=== PATIENT | male | born 1945 | race Caucasian/White ===

== ENCOUNTER 2018-07-20 11:29 | Inpatient (IN) ==
[2018-07-20] MEDS ORDERED: D50W SYRINGE IV PRN (12:45)
[2018-07-20] MEDS: SODIUM CHLORIDE 0.9% INJ SCH (12:53)
[2018-07-20] MEDS: PROTONIX IV SCH (12:53)
[2018-07-20] MEDS: LEVAQUIN 750 MG/D5W 750 MG/150 ML IVPB IV SCH (12:53)
[2018-07-20 14:31] LABS: BASO# 0.08 X1000 (0.0-0.2); BASO% 0.6 % (0.0-0.8); EOS# 0.07 X1000 (0.0-0.7); EOS% 0.6 % (0.0-10.0); HEMATOCRIT 36.8 % (42.0-52.0); IMM GRAN# 0.05 X1000 (0.0-0.04); IMM GRAN% 0.4 % (0.0-0.5); LYMPH% 15.4 % (20.5-51.1); MCH 29.4 PG (27-31); MCHC 32.6 g/dL (33-37); MCV 90.2 FL (81-99); MONO% 8.9 % (1.7-9.3); MPV 9.1 FL (7.4-10.4); NEUT# 9.17 X1000 (1.4-6.5); NEUT% 74.1 % (42.2-75.2); PLT 869 X1000 (130-400); RBC 4.08 XMIL (4.7-6.1); RDW 13.5 % (11.5-14.5); WBC 12.37 X1000 (4.8-10.8)
[2018-07-20] MEDS: POTASSIUM CHLORIDE 10 MEQ in 1/2 NS 1,000 ML IV SCH (14:48)
[2018-07-20] MEDS: MORPHINE IV PRN ×3 (14:48→23:30)
--- NOTE | 2018-07-20 14:49 | Diag Imaging Result Doc PS360 ---
EXAM: CHEST-2 VIEWS 07/20/2018 HISTORY: r/o pna aspiration TECHNIQUE: PA and lateral chest COMMENT: There is no evidence of acute cardiac or pulmonary disease. Compared to 07/20/2018 there has been no significant change in the appearance of the chest. IMPRESSION: No evidence of acute disease. Electronically signed by Geoff Godwin 07/20/2018 2:47 PM
--- NOTE | 2018-07-20 14:51 | EKG Report ---
Test Performed on : 07/20/2018 2:42:21 PM Test Reason : r/o pna aspiration Blood Pressure : / mmHG Vent. Rate : 102 BPM Atrial Rate : 102 BPM P-R Int : 140 ms QRS Dur : 076 ms QT Int : 364 ms P-R-T Axes : 040 038 050 degrees QTc Int : 474 ms Sinus tachycardia. Otherwise normal ECG When compared with ECG of 20-JUL-2018 14:41, (Unconfirmed) No significant change was found Confirmed by Zoya GAMING, Neil ([id number]) on 07/20/2018 5:31:30 PM
[2018-07-20 14:54] LABS: ALB/GLOB RATIO 0.9; ALBUMIN 3.8 g/dL (3.5-5.0); CALCIUM 9.7 mg/dL (8.8-10.2); CREATININE 1.5 mg/dL (0.7-1.2); POTASSIUM 3.8 mmol/L (3.5-5.1); TOTAL BILIRUBIN 0.26 mg/dL (0.20-1.00)
[2018-07-20 15:05] LABS: BANDS 5 % (0-1); LYMPHS 20 % (21-51); MONO 1 % (1-9); SEGS 74 % (42-75)
[2018-07-20 15:56] LABS: URINE SOURCE CLEAN CATCH
[2018-07-20 15:58] LABS: BILIRUBIN URINE NEGATIVE (NEGATIVE); BLOOD URINE NEGATIVE (NEGATIVE); COLOR STRAW; GLUCOSE URINE NEGATIVE (NEGATIVE); KETONE URINE NEGATIVE (NEGATIVE); LEUKOCYTES URINE SMALL (NEGATIVE); NITRITE URINE NEGATIVE (NEGATIVE); PROTEIN URINE NEGATIVE (NEGATIVE); TURBIDITY URINE CLEAR (CLEAR); UR EPITHELIAL CELLS <10 /HPF (<10); URINE BACTERIA 1+ /HPF; URINE RBC <10 /HPF (<10); URINE WBC <10 /HPF (<10); UROBILINOGEN URINE NORMAL (NORMAL)
[2018-07-20] MEDS: HUMALOG SUBQ SCH ×2 (16:37→23:45)
[2018-07-20] MEDS ORDERED: TYLENOL PO PRN (17:44)
[2018-07-20] MEDS: GLUCOPHAGE XR PO SCH (18:54)
[2018-07-20] MEDS: GLUCOTROL PO SCH (18:55)
--- NOTE | 2018-07-20 19:00 | CONSULTATION ---
DATE OF CONSULTATION: 07/20/2018 HISTORY OF PRESENT ILLNESS: This 73-year-old male was admitted with abdominal pain, nausea, vomiting, and scrotal swelling. 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 He states it steadily became worse. He then developed some nausea, abdominal pain and very loose bowels. He states he has been on amoxicillin for a possible urinary tract infection. It started several weeks ago. He states he normally voids without difficulty. He has had no previous surgery on his bladder or prostate. He has no history of kidney stones or hematuria. He states he had a right hydrocele removed in the early . He states that that occurred slowly and eventually got large enough that he wanted it removed. He states the swelling on the left side appeared over several days and is painful. PAST MEDICAL HISTORY: 1. Coronary artery disease. 2. Hypertension. 3. History of congestive heart failure. 4. Elevated cholesterol. 5. Diabetes. 6. Peripheral neuropathy. CURRENT MEDICATIONS: Documented on the chart and include IV Levaquin. PAST SURGICAL HISTORY: 1. Cataract surgery. 2. Right hydrocelectomy. 3. Left foot trauma surgery. SOCIAL HISTORY: Cigarettes over a pack a day for 18 years. Quit in 1989. ETOH use negative. ALLERGIES: He is allergic to penicillin. REVIEW OF SYSTEMS: He states he is usually in good health. He denies any recent chest pains or pulmonary problems. He states he does have some arthritis. PHYSICAL EXAMINATION: General: A normally developed, well-nourished, age apparent, white male, oriented in all ways and cooperative. HEENT: Normal for age. He is essentially edentulous. Neck: Supple. Cardiovascular: Regular rate and rhythm. Lungs: Clear. Abdomen: Protuberant. Diffuse tenderness throughout without guarding or rebound. Genitourinary: Normal uncircumcised male. Foreskin retracts. Meatus is normal. The right scrotum has a scar consistent with his previous surgery. Testis is palpably normal. The left side has increased erythema and the scrotal skin is fixed, and the scrotum is firm and somewhat tender. Rectal: Normal sphincter tone. Prostate around 40 g smooth and symmetric. Nontender to palpation. Extremities: No clubbing, cyanosis, or edema. Neurologic: No focal deficits. LABORATORY EVALUATION: He has a white count of 12.37, hemoglobin 12, hematocrit 36.8, platelets are 169,000. Serum electrolytes have a sodium of 132, potassium 3.8, chloride 99, bicarb 19, BUN 25, creatinine 1.5. Urinalysis had small leukocytes on the dipstick, otherwise normal. There was + 1 bacteria noted. IMPRESSION: 1. Probable left epididymo-orchitis. 2. Enlarging prostate with some obstructive voiding. RECOMMENDATIONS: 1. As has been done. Urine for culture and sensitivities. 2. Start Flomax 0.4 mg a day. 3. Continue Levaquin. 4. Scrotal ultrasound. Thank you for this consultation. cc: MD Neil Rangel MD
--- NOTE | 2018-07-20 19:01 | Diag Imaging Result Doc PS360 ---
EXAM: US SCROTUM 07/20/2018 HISTORY: left scrotal swelling pain. TECHNIQUE: Scrotal ultrasound COMMENT: The left testicle is enlarged, inhomogeneous and hypoechoic without internal color Doppler flow. There is hyperemic flow around the testicle. The left epididymis is swollen and also decreased in vascular flow. There are no masses. There is color Doppler flow in the right testicle. IMPRESSION: Apparent left testicular torsion. The findings were discussed with Manan Epps MD at 07/20/2018 6:58 PM. Electronically signed by Geoff Godwin 07/20/2018 6:58 PM
--- NOTE | 2018-07-20 19:51 | HISTORY AND PHYSICAL ---
HISTORY OF PRESENT ILLNESS: Mr. Ibanez is a 73-year-old white gentleman, known case of diabetes mellitus, GERD syndrome, restless leg syndrome and hyperlipidemia. He comes to the office with persistent vomiting and diarrhea. This is going on for about 7 days. He has lost some weight. He was dehydrated more over the last week. While he was working on his riding mower, he found out that he had pain in the scrotum, and the scrotum got swollen and inflamed. He was worried about hydrocele. He came to the office. He was found to have possibly epididymoorchitis and so we decided to put him in the hospital. PAST MEDICAL ILLNESSES: Other than what has been mentioned, he did not have any significant medical illness except 4 years ago he was found to have diabetes. He also had a left leg injury that was about 45-50 years ago. 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 SOCIAL HISTORY: He is a nonsmoker, does not drink. ALLERGIES: He is allergic to penicillins. REVIEW OF SYSTEMS: Other than what has been mentioned is negative for any rectal bleeding or complaining of having any hematuria or burning in the urination. He has some intermittent abdominal pain. PHYSICAL EXAMINATION: VITAL SIGNS: Reveal temperature normal, pulse 95 per minute, respiratory rate 18 per minute, blood pressure 145/87. HEAD: Normocephalic. EYES: Pupils PERRLA. Fundus examination not done. NECK: Supple. JVP normal. ENT EXAMINATION: Unremarkable. NECK: There is no evidence of lymphadenopathy, thyroid enlargement. EXTREMITIES: No pedal edema, calf tenderness, anemia, cyanosis or clubbing. Pedal pulses well felt. BREAST EXAM: Normal. CHEST: Normal inspection. LUNGS: Clear on auscultation. PMI is in the normal position. HEART: Sounds normal. No murmur, gallop or rub noted. ABDOMEN: Nondistended. Hernial orifices normal. No guarding, rigidity, free fluid, masses, or organomegaly. Bowel sounds normal. RECTAL: Deferred. GENITAL EXAMINATION: Reveals the penis appears normal. There is no local adenopathy; however, there is large scrotal swelling. The scrotum is diffusely distended, and there is inflammation in the skin. There is tenderness over the testicles, more on the left side. CENTRAL NERVOUS SYSTEM: Higher functions normal. Cranial nerves normal. Motor and sensory system examination unremarkable. Deep tendon reflexes normal. Plantars downgoing. Skull and spine examination normal for age. No cerebellar signs or signs of meningeal irritation. LOCOMOTOR EXAMINATION: Unremarkable. SKIN: Unremarkable except for presence of dehydration. CLINICAL IMPRESSION: 1. Dehydration. 2. Gastroenteritis. 3. Epididymoorchitis. 4. The patient has a history of diabetes and hyperlipidemia. PLAN: To restart the IV fluids and get the urine culture. We will also try to get the blood cultures and then start Levaquin. We will get a urology consult with Dr. Epps. cc: Neil Kenny MD
[2018-07-20] MEDS: REQUIP PO SCH ×2 (23:26→23:45)
[2018-07-20] MEDS: FLOMAX PO SCH (23:27)
[2018-07-20] MEDS: PRAVACHOL PO SCH (23:27)
[2018-07-20] MEDS: LOPID PO SCH (23:28)
[2018-07-21] MEDS: POTASSIUM CHLORIDE 10 MEQ in 1/2 NS 1,000 ML IV SCH ×2 (04:14→20:52)
[2018-07-21] MEDS: HUMALOG SUBQ SCH ×4 (06:31→21:05)
--- NOTE | 2018-07-21 08:42 | PROGRESS NOTE ---
DATE: 07/21/2018 SUBJECTIVE: Mr. Ibanez is feeling slightly better. His dehydration is improving. The ultrasound of the scrotum revealed a torsion of the testicle on the left side. He was seen by Dr. Villagran. He also thinks that the left testicle is severely ischemic and he wants to do orchiectomy. The patient is agreeable to that. cc: Neil Kenny MD
[2018-07-21] MEDS ORDERED: NORVASC PO SCH (09:00)
[2018-07-21] MEDS ORDERED: FENTANYL ONE (11:31)
[2018-07-21] MEDS ORDERED: DIPRIVAN 1% ONE (11:31)
[2018-07-21] MEDS ORDERED: BACITRACIN OINTMENT ONE (11:51)
[2018-07-21] MEDS ORDERED: MARCAINE 0.5% ONE (11:51)
[2018-07-21] MEDS: LEVAQUIN 750 MG/D5W 750 MG/150 ML IVPB IV SCH (12:48)
[2018-07-21] MEDS ORDERED: XYLOCAINE-MPF 2% ONE (12:54)
[2018-07-21] MEDS ORDERED: EPHEDRINE ONE (12:54)
[2018-07-21] MEDS: ASPIRIN EC PO SCH (13:02)
[2018-07-21] MEDS: GLUCOPHAGE XR PO SCH ×2 (13:02→17:17)
[2018-07-21] MEDS: GLUCOTROL PO SCH ×2 (13:02→17:17)
[2018-07-21] MEDS: SODIUM CHLORIDE 0.9% INJ SCH (13:03)
[2018-07-21] MEDS: PROTONIX IV SCH (13:03)
[2018-07-21] MEDS: NORVASC PO SCH (13:03)
[2018-07-21] MEDS: LOPID PO SCH ×2 (13:03→20:56)
[2018-07-21] MEDS ORDERED: XYLOCAINE 2% JELLY ONE (13:32)
[2018-07-21] MEDS: DILAUDID ONE ×2 (13:52→13:57)
[2018-07-21] MEDS: MORPHINE IV PRN ×2 (17:24→20:48)
--- NOTE | 2018-07-21 19:12 | OPERATIVE NOTE ---
PROCEDURE DATE: 07/21/2018 SURGEON: Manna Epps MD. PREOPERATIVE DIAGNOSIS: Infarcted left testis. POSTOPERATIVE DIAGNOSIS: Infarcted left testis. PROCEDURE PERFORMED: 1. Left scrotal orchiectomy. 2. Right orchidopexy. ANESTHESIA: General via laryngeal mask. FINDINGS: A very necrotic left testis that was affixed to the anterior scrotal wall and had to be sharply dissected free of the wall. The right testis was somewhat fixed to the right scrotal wall secondary to his previous hydrocelectomy. INDICATION FOR PROCEDURE: This 73-year-old male has a several-week history of pain in the left scrotum. He states that several weeks ago the scrotum had what felt like fluid, and that got better but he developed severe pain. A scrotal ultrasound revealed no blood flow to the left testis and apparent necrotic changes. DESCRIPTION OF PROCEDURE: After informed consent was obtained from the patient and him receiving his routine IV antibiotics, he was taken to the main OR and placed in the supine position. General anesthesia via laryngeal mask was achieved. He was then prepped and draped in the usual sterile fashion for lower abdominal, penile, and scrotal surgery. A longitudinal skin incision was made over the scrotal raphe, coming down on the very swollen left testis. The scrotal skin had to be sharply dissected away from the testis. The right side of the testis dissected away much easier than the anterior and left side of the testis. After the testis was completely freed, it was able to be dissected back to the cord. The cord was into 3 parts, and a EDER stapler with a vascular load was used to staple across the cord. The testis was then passed off the field to be sent to Pathology. The right testis was pexed to the right scrotal wall using a single suture of 4- 0 Prolene. The wound was irrigated. A 1/4-inch Eugenia drain was placed through a separate stab incision into the left scrotal area. The dartos tunica was reapproximated with a running locking suture of 3-0 chromic. The skin was reapproximated with a running simple suture of 3-0 chromic. The Eugenia drain was sutured to the skin with 3-0 chromic. The wound was dressed with bacitracin ointment. A scrotal turban dressing was placed. This was reinforced with fluff gauze, and a scrotal support was placed. He tolerated the procedure well. Estimated blood loss was 30 mL. He was taken to the recovery room in good condition. cc: MD Neil Rangel MD MTDD
[2018-07-21] MEDS: FLOMAX PO SCH (20:56)
[2018-07-21] MEDS: PRAVACHOL PO SCH (20:56)
[2018-07-21] MEDS: REQUIP PO SCH ×2 (20:56→20:57)
[2018-07-22] MEDS: MORPHINE IV PRN ×3 (03:18→22:37)
[2018-07-22] MEDS: HUMALOG SUBQ SCH ×4 (06:05→23:17)
[2018-07-22 07:18] LABS: BASO# 0.02 X1000 (0.0-0.2); BASO% 0.3 % (0.0-0.8); EOS# 0.05 X1000 (0.0-0.7); EOS% 0.7 % (0.0-10.0); HEMATOCRIT 32.2 % (42.0-52.0); HEMOGLOBIN 10.6 g/dL (14.0-18.0); IMM GRAN# 0.02 X1000 (0.0-0.04); IMM GRAN% 0.3 % (0.0-0.5); LYMPH# 1.33 X1000 (1.2-3.4); LYMPH% 19.2 % (20.5-51.1); MCHC 32.9 g/dL (33-37); MCV 91.2 FL (81-99); MONO# 0.82 X1000 (0.11-0.59); MONO% 11.8 % (1.7-9.3); MPV 8.9 FL (7.4-10.4); NEUT# 4.68 X1000 (1.4-6.5); NEUT% 67.7 % (42.2-75.2); PLT 721 X1000 (130-400); RBC 3.53 XMIL (4.7-6.1); RDW 13.7 % (11.5-14.5); WBC 6.92 X1000 (4.8-10.8)
[2018-07-22 07:35] LABS: AGAP 9; BUN 10 mg/dL (8-22); CALCIUM 8.9 mg/dL (8.8-10.2); CHLORIDE 107 mmol/L (98-107); COSMO 272; ESTIMATED GFR > 60; GLUCOSE 109 mg/dL (70-104); POTASSIUM 4.4 mmol/L (3.5-5.1); SODIUM 136 mmol/L (136-145); TCO2 20 mmol/L (25-35)
--- NOTE | 2018-07-22 09:05 | PROGRESS NOTE ---
DATE: 07/22/2018 Mr. Ibanez is doing better. He had left-sided orchiectomy yesterday through the scrotum. The wound looks quite well. He is still in a lot of pain but he is feeling better. There is some drainage. CBC almost is normal. Hemoglobin came down from 12 to 10.6 with hydration. His BUN and creatinine also have come down with significant hydration. Urinalysis and urine culture are negative. We are going to continue with the current management. Cut down on his fluid to KVO. cc: Neil Kenny MD
[2018-07-22] MEDS: ASPIRIN EC PO SCH (10:10)
[2018-07-22] MEDS: LOPID PO SCH ×2 (10:11→22:38)
[2018-07-22] MEDS: GLUCOTROL PO SCH ×2 (10:11→16:29)
[2018-07-22] MEDS: NORVASC PO SCH (10:11)
[2018-07-22] MEDS: GLUCOPHAGE XR PO SCH ×2 (10:11→16:30)
[2018-07-22] MEDS: POTASSIUM CHLORIDE 10 MEQ in 1/2 NS 1,000 ML IV SCH (10:11)
[2018-07-22] MEDS: PROTONIX IV SCH (12:23)
[2018-07-22] MEDS: LEVAQUIN 750 MG/D5W 750 MG/150 ML IVPB IV SCH (13:23)
[2018-07-22] MEDS: ZOFRAN IV PRN (14:09)
[2018-07-22] MEDS: SODIUM CHLORIDE 0.9% INJ SCH (16:23)
[2018-07-22] MEDS: PRAVACHOL PO SCH (22:38)
[2018-07-22] MEDS: REQUIP PO SCH (22:38)
[2018-07-22] MEDS: FLOMAX PO SCH (22:38)
[2018-07-23] MEDS: HUMALOG SUBQ SCH ×4 (06:46→20:28)
--- NOTE | 2018-07-23 09:07 | PROGRESS NOTE ---
DATE: 07/23/2018 Mr. Ibanez is in about the same general condition. His blood culture and urine culture is negative. His blood sugar went down to 55 last night. It has gone up now. It is better. We are continuing the current management on him. We will put him on pain medication by mouth if he can. He has been getting IV morphine which we will try to hold. cc: Neil Kenny MD
[2018-07-23] MEDS: POTASSIUM CHLORIDE 10 MEQ in 1/2 NS 1,000 ML IV SCH (10:14)
[2018-07-23] MEDS: LOPID PO SCH ×2 (10:14→20:52)
[2018-07-23] MEDS: GLUCOTROL PO SCH ×2 (10:15→17:56)
[2018-07-23] MEDS: GLUCOPHAGE XR PO SCH ×2 (10:15→17:56)
[2018-07-23] MEDS: ASPIRIN EC PO SCH (10:15)
[2018-07-23] MEDS: NORVASC PO SCH (10:15)
[2018-07-23] MEDS: NORCO-10 PO PRN ×2 (10:18→20:52)
[2018-07-23] MEDS: PROTONIX IV SCH (12:01)
[2018-07-23] MEDS: SODIUM CHLORIDE 0.9% INJ SCH (12:01)
[2018-07-23] MEDS: LEVAQUIN 750 MG/D5W 750 MG/150 ML IVPB IV SCH (13:36)
[2018-07-23] MEDS: REQUIP PO SCH (20:51)
[2018-07-23] MEDS: PRAVACHOL PO SCH (20:52)
[2018-07-23] MEDS: FLOMAX PO SCH (20:52)
[2018-07-24] MEDS: HUMALOG SUBQ SCH ×2 (05:59→11:37)
[2018-07-24] MEDS: GLUCOPHAGE XR PO SCH (08:30)
[2018-07-24] MEDS: GLUCOTROL PO SCH (08:31)
[2018-07-24] MEDS: ASPIRIN EC PO SCH (08:32)
[2018-07-24] MEDS: LOPID PO SCH (08:33)
[2018-07-24] MEDS: ZOFRAN IV PRN (08:34)
[2018-07-24] MEDS: NORVASC PO SCH (08:34)
[2018-07-24] MEDS: POTASSIUM CHLORIDE 10 MEQ in 1/2 NS 1,000 ML IV SCH (10:35)
[2018-07-24 11:37] VITALS: BP 113/51
--- NOTE | 2018-07-24 12:03 | PROGRESS NOTE ---
DATE: 07/24/2018 The patient is doing better. His vital signs are stable. Blood sugars are stable. The cultures did not grow any growth. We will discharge him today since it was approved by DR. Epps yesterday. I gave him a prescription of [place] 5 t.i.d. p.r.n., 30 tablets and Levaquin for about 4 more days. -9 cc: Neil Kenny MD
--- NOTE | 2018-07-24 12:13 | DISCHARGE SUMMARY ---
ADMISSION DATE: 07/20/2018 DISCHARGE DATE: 07/24/2018 HISTORY: Ms. Ibanez was hospitalized on 07/20/2018. He was hospitalized for possible epididymo- orchitis. IV Levaquin was started. A urology consult was made. Tamsulosin was started. Ultrasound was ordered which revealed presence of torsion of the testicle on the left side. Dr. Epps thought it was possibly vascular necrosis of the testicle. He decided to do the orchiectomy, which was done on the next day. He tolerated the procedure very well, except for one episode of hypoglycemia. He is feeling better. I am going to discharge him today with a prescription of Levaquin 750 mg daily for about 4 days, and [employer] 5 t.i.d. p.r.n. 30 tablets. FINAL DIAGNOSIS: Torsion of the left testicle status post orchiectomy, and possibleepididymo- orchitis. He also had some gastroenteritis. There was some dehydration also at the time of admission, which made the BUN and creatinine go up, and came down significantly to normal levels. cc: Neil Kenny MD MTDD
[2018-07-24] MEDS: PROTONIX IV SCH (14:00)
[2018-07-24] MEDS: LEVAQUIN 750 MG/D5W 750 MG/150 ML IVPB IV SCH (14:01)
[2018-07-24] MEDS: SODIUM CHLORIDE 0.9% INJ SCH (14:01)
== END 2018-07-24 15:06 | disposition home or self-care (01) | DRG 711 ==
LOC: DIRADM 11:29 → 3N 12:08
PROVIDERS: ADMIT Internal Medicine; ATTEND Internal Medicine
CPT/HCPCS: 71020; 71046; 76870; 80048; 80053; 81001; 82948; 85025; 87040; 87088; 88304; 93005; 93010; A9270; C9113; J1170; J1815; J1956; J2270; J2405; J3010; J3480; S0020; S0164; XXXXX

== ENCOUNTER 2018-08-09 20:44 | Inpatient (IN) ==
[2018-08-09] MEDS ORDERED: ATIVAN IM ONE (20:52)
--- NOTE | 2018-08-09 21:15 | Diag Imaging Result Doc PS360 ---
EXAM: CT HEAD W/O CONTRAST HISTORY: seizure TECHNIQUE: CT head without contrast COMPARISON: None. FINDINGS: No parenchymal hemorrhage. No epidural or subdural hematoma. No subarachnoid hemorrhage. Mild atrophy. No mass identified on this noncontrasted exam. No hydrocephalus. Small air-fluid level in the right maxillary sinus. IMPRESSION: 1.No hemorrhage 2.Mild atrophy This exam was performed using automated exposure control, adjustment of mA or kV according to patient size, and/or use of iterative reconstruction technique. Electronically signed by Kan Apodaca 08/09/2018 9:12 PM
--- NOTE | 2018-08-09 21:16 | Diag Imaging Result Doc PS360 ---
EXAM: CHEST-PORTABLE HISTORY: ams TECHNIQUE: Portable chest single view COMPARISON: 07/20/2018 FINDINGS: The lungs are well expanded. The heart is not enlarged. The vessels are not distended. There are no infiltrates. No effusion identified. IMPRESSION: Negative exam. Electronically signed by Kan Apodaca 08/09/2018 9:14 PM
[2018-08-09] MEDS ORDERED: NS 1,000 ML IV ONE (21:21)
[2018-08-09 21:43] LABS: BASO# 0.03 X1000 (0.0-0.2); BASO% 0.2 % (0.0-0.8); EOS# 0.08 X1000 (0.0-0.7); EOS% 0.6 % (0.0-10.0); HEMATOCRIT 36.3 % (42.0-52.0); HEMOGLOBIN 12.1 g/dL (14.0-18.0); IMM GRAN# 0.06 X1000 (0.0-0.04); IMM GRAN% 0.5 % (0.0-0.5); LYMPH# 1.93 X1000 (1.2-3.4); LYMPH% 14.7 % (20.5-51.1); MCH 29.7 PG (27-31); MCHC 33.3 g/dL (33-37); MCV 89.2 FL (81-99); MONO# 0.97 X1000 (0.11-0.59); MONO% 7.4 % (1.7-9.3); MPV 9.2 FL (7.4-10.4); NEUT# 10.02 X1000 (1.4-6.5); NEUT% 76.6 % (42.2-75.2); PLT 742 X1000 (130-400); RBC 4.07 XMIL (4.7-6.1); RDW 14.7 % (11.5-14.5); WBC 13.09 X1000 (4.8-10.8)
[2018-08-09 21:51] LABS: INR 0.95; PROTIME 13.5 Seconds (11.0-16.0)
[2018-08-09 21:52] LABS: PTT 29.6 Seconds (22.3-41.8)
[2018-08-09 22:11] LABS: URINE SOURCE CATH
[2018-08-09 22:49] LABS: AGAP 25; ALB/GLOB RATIO 1.4; ALBUMIN 4.2 g/dL (3.5-5.0); ALKALINE PHOSPHATASE 103 U/L (32-122); BUN 22 mg/dL (8-22); CALCIUM 9.6 mg/dL (8.8-10.2); CHLORIDE 96 mmol/L (98-107); CK PROFILE 181 U/L (24-204); COSMO 283; CREATININE 1.1 mg/dL (0.7-1.2); ESTIMATED GFR > 60; GLUCOSE 169 mg/dL (70-104); GOT 16 U/L (10-34); GPT 13 U/L (10-44); POTASSIUM 4.6 mmol/L (3.5-5.1); SODIUM 138 mmol/L (136-145); TCO2 17 mmol/L (25-35); TOTAL BILIRUBIN 0.18 mg/dL (0.20-1.00); TOTAL PROTEIN 7.3 g/dL (6.3-8.3)
[2018-08-09 22:58] LABS: BILIRUBIN URINE NEGATIVE (NEGATIVE); BLOOD URINE SMALL (NEGATIVE); COLOR YELLOW; GLUCOSE URINE 100 mg/dL (NEGATIVE); KETONE URINE TRACE mg/dL (NEGATIVE); LEUKOCYTES URINE NEGATIVE (NEGATIVE); NITRITE URINE NEGATIVE (NEGATIVE); PROTEIN URINE 70 mg/dL (NEGATIVE); SP GRAVITY URINE 1.014; TURBIDITY URINE CLEAR (CLEAR); UR EPITHELIAL CELLS <10 /HPF (<10); URINE BACTERIA NEGATIVE /HPF; URINE RBC <10 /HPF (<10); URINE WBC <10 /HPF (<10); UROBILINOGEN URINE NORMAL (NORMAL)
[2018-08-09] MEDS ORDERED: CEREBYX IV ONE (22:59)
[2018-08-09] MEDS ORDERED: CEREBYX 1,000 MG in NS 50 ML IV ONE (23:12)
[2018-08-09 23:13] LABS: ALLEN TEST YES; BE -2.9 mmoll (-3.0-3.0); BLOOD TYPE ARTERIAL; HCO3-(ACT) 22.7 mmoll (20.0-26.0); METHB 0.2 % (0.0-1.5); O2(CT) 13.1 mL/dL (15.0-23.0); PCO2(98.6) 42 mmHg (35-45); PO2(98.6) 151 mmHg (60-100); SAMPLE BLOOD; SAO2 98.8 % (95.0-100.0); THB 9.4 g/dL (11.5-17.4); pH(98.6) 7.34 (7.35-7.45)
[2018-08-09 23:14] LABS: MODALITY CANNULA
--- NOTE | 2018-08-09 23:40 | PROVIDER DOCUMENTATION ---
This chart was entered by Esther Ferguson Scribe, acting as scribe for Michaelle Campos MD. HPI-Neurological Disorder - General Chief Complaint: Altered Mental Status Stated Complaint: AMS Time Seen by Provider: 08/09/18 20:58 Source: family, EMS Allergies/Adverse Reactions: Patient Allergies Allergy/AdvReac Type Severity Reaction Status Date / Time Penicillins Allergy Mild RASH Verified 07/20/18 12:21 Home Medications: Home Medication List Medication Instructions Recorded Confirmed Last Taken Type Amlodipine Besylate 5 mg PO DAILY 07/20/18 07/20/18 07/20/18 09:00 History Gemfibrozil [Lopid] 600 mg PO BID 07/20/18 07/20/18 07/20/18 09:00 History Glipizide 5 mg PO BID 07/20/18 07/20/18 07/20/18 09:00 History Metformin HCl [Metformin HCl ER] 1,000 mg PO BID 07/20/18 07/20/18 07/20/18 09:00 History Omeprazole 20 mg PO DAILY 07/20/18 07/20/18 07/20/18 09:00 History Pravastatin Sodium 40 mg PO HS 07/20/18 07/20/18 07/19/18 21:00 History Ropinirole HCl 2 mg PO HS 07/20/18 07/20/18 07/19/18 21:00 History Aspirin EC 81 mg PO DAILY tab 07/24/18 Unknown Rx Hydrocodone/Acetaminophen [[place] 1 ea PO TID PRN PRN #30 tab 07/24/18 Unknown Rx 5-325 Tablet] Levofloxacin [Levaquin] 500 mg PO DAILY #4 tab 07/24/18 Unknown Rx Tamsulosin [Flomax] 0.4 mg PO QHS cap 07/24/18 Unknown Rx - History of Present Illness-Neuro Nature of Presenting Problem: Pt is 73/M presenting to ED via EMS. Family reports that he has had AMS for the last week and fell today, was at kitchen table and drooped over and fell into floor. Non witnessed. Family called EMS. Pt is non verbal at time of arrival. Will now answer w/ yes and no. Can not give name. hx of HTN and DM Onset/Duration: reports: just prior to arrival Timing: reports: still present Context: reports: other (found drooped down and nonverbal by family) Character of Altered Mental Status: reports: decreased responsiveness Any recent trauma/injury?: reports: none Character of Deficits: reports: impaired speech Cognitive Baseline: alert but disoriented Associated Symptoms: reports: seizures Similar Symptoms Previously?: No Recently seen or treated by another doctor?: No Review of Systems - Adult - REVIEW OF SYSTEMS - ADULT ROS:: limited per condition Constitutional: denies: chills, fever Eyes: reports: no symptoms reported Ears, Nose, Mouth & Throat: reports: no symptoms reported Cardiovascular: reports: no symptoms reported Respiratory: denies: cough, shortness of breath Gastrointestinal: denies: diarrhea, vomiting Genitourinary: reports: no symptoms reported Musculoskeletal: reports: no symptoms reported Integumentary: reports: no symptoms reported Neurological: reports: other (non verbal) Psychiatric: reports: no symptoms reported Endocrine: reports: no symptoms reported Hematologic/Lymphatic: reports: no symptoms reported Allergic/Immunologic: reports: no symptoms reported All Other Systems: Reviewed and Negative Past History - Adult - PAST MEDICAL HISTORY-ADULT Review of Records: reports: Old Records Reviewed, Nursing Assessment Review, Medications Reviewed Cardiovascular: reports: HTN Respiratory: reports: denies history Gastrointestinal: reports: denies history Obstetrical/Gynecological: reports: denies history Genitourinary: reports: denies history Musculoskeletal: reports: denies history Neurological: reports: denies history Psychiatric: reports: denies history Endocrine/Immune: reports: denies history Other Conditions: reports: denies history - PRIOR SURGERIES/PROCEDURES Surgical/Procedure History: reports: none - SOCIAL HISTORY Smoking: quit greater than 1 year Substance Use: none/never Living Situation: family Physical Exam- Neurological - Physical Exam-Neuro Initial Vital Signs Reviewed: Yes General Appearance: appears well, alert, no apparent distress Eye Exam: bilateral eye: normal inspection, PERRL HENMT: normocephalic/atraumatic, moist mucous membranes, normal ENT inspection, TMs normal, pharynx normal Head Injury: no evidence of injury Neck: non-tender, full range of motion, supple, normal inspection Respiratory: chest non-tender, lungs clear, normal breath sounds Cardiovascular: regular rate, rhythm, no edema Abdominal Exam: normal bowel sounds, non tender, soft Extremity: normal range of motion, non-tender, 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, 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: other (pt non verbal, only answering yes or no at this point) Integumentary: normal color, warm/dry - [place] Coma Scale Best Eye Response: (4) open spontaneously Best Verbal Response: (1) no verbal response Progress - PLAN OF CARE/RESULTS Progress/Plan/Lab Results: Vital Signs - 8 hr 08/09/18 21:26 Temperature 97.7 F Pulse Rate 121 H Respiratory Rate 22 Blood Pressure 190/94 O2 Sat by Pulse Oximetry 99 Laboratory Results - last 24 hr 08/09/18 08/09/18 08/09/18 21:20 21:20 21:20 WBC 13.09 H RBC 4.07 L Hgb 12.1 L Hct 36.3 L MCV 89.2 MCH 29.7 MCHC 33.3 RDW Std Deviation 14.7 H Plt Count 742 H MPV 9.2 Immature Gran % (Auto) 0.5 Neut % (Auto) 76.6 H Lymph % (Auto) 14.7 L [place] % (Auto) 7.4 Eos % (Auto) 0.6 Baso % (Auto) 0.2 Immature Gran # (Auto) 0.06 H Neut # (Auto) 10.02 H Lymph # (Auto) 1.93 [place] # (Auto) 0.97 H Eos # (Auto) 0.08 Baso # (Auto) 0.03 PT INR PTT (Actin FS) Specimen Type Sample Site pH pCO2 pO2 HCO3 Base Excess Oxyhemoglobin ABG O2 Sat (Calculated) ABG O2 Saturation ABG Carboxyhemoglobin ABG Methemoglobin Shamar Test A-a O2 Difference Total Hemoglobin Lactate Liter Flow Blood Gas Modality FiO2 % Sodium 138 Potassium 4.6 Chloride 96 L Carbon Dioxide 17 L Anion Gap 25 BUN 22 Creatinine 1.1 Estimated GFR/1.73 m2 > 60 BUN/Creatinine Ratio 20 Glucose 169 H POC Glucose Calculated Osmolality 283 Calcium 9.6 Total Bilirubin 0.18 L AST 16 ALT 13 Alkaline Phosphatase 103 Creatine Kinase 181 Troponin T Total Protein 7.3 Albumin 4.2 Globulin 3.1 Albumin/Globulin Ratio 1.4 Plasma Lactate 8.8 H Urine Source Urine Color Urine Turbidity Urine pH Ur Specific [place] Urine Protein Ur Glucose (Stick) Ur Ketones (Stick) Urine Blood Urine Nitrite Urine Bilirubin Urobilinogen Dipstick Urine Leukocytes Urine WBC (Auto) Urine RBC (Auto) U Epithel Cells (Auto) Urine Bacteria (Auto) 08/09/18 08/09/18 08/09/18 21:20 21:20 21:41 WBC RBC Hgb Hct MCV MCH MCHC RDW Std Deviation Plt Count MPV Immature Gran % (Auto) Neut % (Auto) Lymph % (Auto) [place] % (Auto) Eos % (Auto) Baso % (Auto) Immature Gran # (Auto) Neut # (Auto) Lymph # (Auto) [place] # (Auto) Eos # (Auto) Baso # (Auto) PT 13.5 INR 0.95 PTT (Actin FS) 29.6 Specimen Type Sample Site pH pCO2 pO2 HCO3 Base Excess Oxyhemoglobin ABG O2 Sat (Calculated) ABG O2 Saturation ABG Carboxyhemoglobin ABG Methemoglobin Shamar Test A-a O2 Difference Total Hemoglobin Lactate Liter Flow Blood Gas Modality FiO2 % Sodium Potassium Chloride Carbon Dioxide Anion Gap BUN Creatinine Estimated GFR/1.73 m2 BUN/Creatinine Ratio Glucose POC Glucose 168 H Calculated Osmolality Calcium Total Bilirubin AST ALT Alkaline Phosphatase Creatine Kinase Troponin T < 0.010 Total Protein Albumin Globulin Albumin/Globulin Ratio Plasma Lactate Urine Source Urine Color Urine Turbidity Urine pH Ur Specific [place] Urine Protein Ur Glucose (Stick) Ur Ketones (Stick) Urine Blood Urine Nitrite Urine Bilirubin Urobilinogen Dipstick Urine Leukocytes Urine WBC (Auto) Urine RBC (Auto) U Epithel Cells (Auto) Urine Bacteria (Auto) 08/09/18 08/09/18 21:50 23:04 WBC RBC Hgb Hct MCV MCH MCHC RDW Std Deviation Plt Count MPV Immature Gran % (Auto) Neut % (Auto) Lymph % (Auto) [place] % (Auto) Eos % (Auto) Baso % (Auto) Immature Gran # (Auto) Neut # (Auto) Lymph # (Auto) [place] # (Auto) Eos # (Auto) Baso # (Auto) PT INR PTT (Actin FS) Specimen Type ARTERIAL Sample Site R RADIAL pH 7.34 L pCO2 42 pO2 151 H HCO3 22.7 Base Excess -2.9 Oxyhemoglobin 97.0 ABG O2 Sat (Calculated) 13.1 L ABG O2 Saturation 98.8 ABG Carboxyhemoglobin 1.60 ABG Methemoglobin 0.2 Shamar Test YES A-a O2 Difference 53.0 Total Hemoglobin 9.4 L Lactate 3.90 H Liter Flow 4.0 Blood Gas Modality [place] FiO2 % 36.0 Sodium Potassium Chloride Carbon Dioxide Anion Gap BUN Creatinine Estimated GFR/1.73 m2 BUN/Creatinine Ratio Glucose POC Glucose Calculated Osmolality Calcium Total Bilirubin AST ALT Alkaline Phosphatase Creatine Kinase Troponin T Total Protein Albumin Globulin Albumin/Globulin Ratio Plasma Lactate Urine Source CATH Urine Color YELLOW Urine Turbidity CLEAR Urine pH 6.0 Ur Specific [place] 1.014 Urine Protein 70 A Ur Glucose (Stick) 100 A Ur Ketones (Stick) TRACE A Urine Blood SMALL A Urine Nitrite NEGATIVE Urine Bilirubin NEGATIVE Urobilinogen Dipstick NORMAL Urine Leukocytes NEGATIVE Urine WBC (Auto) <10 Urine RBC (Auto) <10 U Epithel Cells (Auto) <10 Urine Bacteria (Auto) NEGATIVE Orders Category Date Time Status Cardiac Monitoring DIRECTED Care 08/09/18 20:53 Active Finger Stick Blood Sugar (ED) DIRECTED Care 08/09/18 20:53 Active [place] Insertion ORDERED Care 08/09/18 22:00 Active Oxygen Therapy- ED Nursing DIRECTED Care 08/09/18 20:53 Active Saline Loc NOW Care 08/09/18 20:53 Active CHEST-PORTABLE [RAD] Stat Exams 08/09/18 20:[address] HEAD W/O CONTRAST [CT] Stat Exams 08/09/18 20:50 Completed ABG [RESP] Routine Lab 08/09/18 23:04 Completed ALCOHOL BLOOD Stat Lab 08/09/18 23:36 Uncollected BLOOD CULTURE [BLDCUL] Stat Lab 08/09/18 22:25 Results CBC WITH ELECTRONIC DIFF [HEME] Stat Lab 08/09/18 21:20 Completed CK PROFILE [SP CHEM] Stat Lab 08/09/18 21:20 Completed COMPREHENSIVE METABOLIC PANEL [CHEM] Stat Lab 08/09/18 21:20 Completed LACTATE, PLASMA [CHEM] Stat Lab 08/09/18 21:20 Completed PROTIME WITH INR [COAG] Stat Lab 08/09/18 21:20 Completed PTT [COAG] Stat Lab 08/09/18 21:20 Completed SALICYLATES [TDM] Stat Lab 08/09/18 23:36 Uncollected TROPONIN T Stat Lab 08/09/18 21:20 Completed Tylenol [ACETAMINOPHEN] [TDM] Stat Lab 08/09/18 23:36 Uncollected URINALYSIS [URINALYSIS] Stat Lab 08/09/18 21:50 Completed URINE DRUG SCREEN Stat Lab 08/09/18 23:36 Uncollected 0.9% Sodium Chloride Inj [Ns] 1,000 ml Med 08/09/18 21:21 Discontinued IV 999 mls/hr Fosphenytoin [Cerebyx] 1,000 mg Med 08/09/18 23:12 Active 0.9% Sodium Chloride Inj [Ns] 50 ml IV DIRECTED Lorazepam [Ativan] Med 08/09/18 20:52 Discontinued 2 mg IM NOW ONE Altered Mental Status Stat Oth 08/09/18 20:52 Ordered EKG [EKG] Stat Ther 08/09/18 20:53 Ordered EKG [EKG] Stat Ther 08/09/18 22:40 Ordered Result Diagrams: 08/09/18 21:20 08/09/18 21:20 - REASSESSMENT Reassessment #1 Time Reassessed: 23:39 (observed x1 active seizure with Tonic Clonic. 1 another episode was not tonic clonic. ) - EKG 1 Time of EKG reading by physician:: 21:30 EKG Read and Signed by:: Michaelle Campos EKG Interpretation (*Must complete 3 of following elements*): Normal (sinus tachycardia, otherwise normal ECG) Rate: 116 Rhythm: sinus tachycardia [place]: normal QRS: normal - XRAY 1 XRAY: Bilateral XRAY Study: Chest Impression: Normal (IMPRESSION: Negative exam. Electronically signed by Kan Apodaca 08/09/2018 9:14 PM [id number]) - CT/MRI 1 CT Study: Head Impression: Normal ( IMPRESSION: 1.No hemorrhage 2.Mild atrophy This exam was performed using automated exposure control, adjustment of mA or kV according to patient size, and/or use of iterative reconstruction technique. Electronically signed by Kan Apodaca 08/09/2018 9:12 PM [id number]) - CONSULTS/PCP/HOSPITALIST Notification #1 *Consult/PCP/Hospitalist*: Dr. Goncalves Time Discussed: 23:40 Consult Disposition: Admit Departure - Departure Date of Disposition Decision: 08/09/18 Time of Disposition Decision: 23:37 DIAGNOSIS: New onset seizure Disposition: ADMITTED INPATIENT 09 Certified Medical Emergency: Emergent Condition: Stable Referrals and Follow-Ups: Neil Kenny MD [Primary Care Provider] - - Critical Care Note This patient required my direct & personal management of CC.: No Attestation - Physician/ KATHY Attestation Patient care was provided by Advanced Practice Provider:: No The physician spent face to face time with patient:: Yes Advanced Practice Provider documentation review:: Supervising physician onsite and consulted in the evaluation and care of this patient. The physician did have a face to face encounter with the patient. This chart was documented by the indicated scribe, (Esther Ferguson, Cassandraibrichard) and accurately reflects the services I performed and decisions made by me, Michaelle Campos MD, as attested by the provider's signature.
[2018-08-10] MEDS ORDERED: ZOFRAN IV PRN (00:13)
[2018-08-10] MEDS ORDERED: ATIVAN IV PRN (00:21)
[2018-08-10 00:52] LABS: ACETAMINOPHEN 4.7 ug/mL (10-30); SALICYLATES < 3.00 mg/dL (3-10)
--- NOTE | 2018-08-10 01:09 | HISTORY AND PHYSICAL ---
This is SABA Kirk dictating a H and P for Richardson Martinez MD. PRIMARY CARE PROVIDER: Neil Kenny MD. CHIEF COMPLAINT: Per ED record seizures. HISTORY OF PRESENT ILLNESS: Mr. Ibanez is a 73-year-old male who carries a past medical history of diabetes mellitus, GERD, restless leg syndrome and hyperlipidemia, who presented to the ED via EMS for altered mental status for 1 week, and he had a fall today. He was at the kitchen table, drooped over and fell onto the floor. This was nonwitnessed. Family called EMS. The patient was nonverbal at the time of arrival. I believe he had 2 episodes of seizures while in the ER, unknown if he had any seizures prior to arrival. He was placed on Cerebyx and given IM Ativan. We are currently pending a urine drug screen as well as blood cultures and alcohol level, as well as a Tylenol level. Head CT showed no hemorrhage and mild atrophy. We will admit him to the ICU. Continue with his IV Cerebyx and p.r.n. Ativan for breakthrough seizures. He currently remains postictal. He does not really respond except to some painful stimuli. He does not follow commands or answer any questions. Again he will be admitted to the ICU for further treatment and evaluation and we will have Dr. Kenny take over in the a.m. PAST MEDICAL HISTORY: 1. Diabetes mellitus. 2. GERD. 3. Restless leg syndrome. 4. Hyperlipidemia. 5. He did have recent treatment earlier this month in the hospital for dehydration, gastroenteritis and epididymo-orchitis. PAST SURGICAL HISTORY: 1. Cataract surgery. 2. Right hydrocelectomy. 3. Left foot trauma surgery. SOCIAL HISTORY: Cigarettes: Over a pack a day for 18 years, he quit in 1989. Ethanol is pending. ALLERGIES: Penicillin. HOME MEDICATIONS: Have not been verified. REVIEW OF SYSTEMS: Unobtainable secondary to the patient's postictal state. PHYSICAL EXAMINATION: VITAL SIGNS: Temperature is 97.7 degrees, heart rate 121, respirations 22, blood pressure 190/94, O2 saturation is 99% on room air. GENERAL: Mr. Ibanez is a 73-year-old male who is sitting up on the stretcher, postictal state, only respond mildly to painful stimuli with a hard sternal rub. He does not open his eyes. He does not follow commands. HEENT: Atraumatic and normocephalic. PERRL. NECK: Supple. Trachea midline. CARDIOVASCULAR: S1 and S2 appreciated. No murmurs, gallops, or rubs. RESPIRATORY: Lung sounds decreased bilaterally. GASTROINTESTINAL: Is soft, appears to be nontender and nondistended. Positive bowel sounds in all 4 quadrants. LOWER EXTREMITIES: Trace edema right greater than left. NEUROLOGIC: Again unable to assess as the patient is postictal. He has received 2 mg of Ativan. DIAGNOSTIC DATA: Head CT, no hemorrhage, mild atrophy. Chest x-ray, negative exam. LABORATORY DATA: White count 13, hemoglobin and hematocrit 12 and 36, platelet count is 742,000. ABG: pH 7.34. Her pH of 42, PO2 of 151, bicarbonate 22, base excess -2.9. O2 saturation on 4 L was 98. CMP: Sodium 138, potassium 4.6, chloride 96, carbon dioxide 17, BUN 22, creatinine 1.1, blood glucose was 169. Troponin less than 0.010. Plasma lactate 8.8. Urinalysis is negative. Blood cultures pending. ASSESSMENT AND PLAN: 1. New onset seizures. There was no family at the bedside, no family came to the emergency room with the patient. Unsure if he was seizing at home or if this is new onset while he was in the emergency department. He was treated with a Cerebyx as well as intramuscular Ativan. We will consult Neurology. Continue to monitor his neurologic status closely in the Intensive Care Unit. Follow Neurology's recommendations. 2. Diabetes mellitus. We will place him on patterned blood sugars with sliding scale. 3. Gastroesophageal reflux disease. We will continue proton pump inhibitor with Protonix. 4. Gastrointestinal prophylaxis with thromboembolic deterrents/sequential compression devices. 5. Leukocytosis, possibly reactive, cannot find a clear source of infection. He did have a plasma lactate of 8.8, was 3.9 on the arterial blood gas. We will continue with intravenous hydration and continue to follow cultures. 6. Further recommendation to follow physician evaluation, laboratory and diagnostic data. Dictated by SABA Kirk for Richardson Martinez MD Patient seen and examined by me face to face, all the laboratory, vitals signs and images were reviewed, patient presented to the emergency department with mental status changes, apparently he had a seizure and was treated with fosphenytoin, he is lethargic, no family at the bedside, he will be transfer to the ICU, telemetry, continue with seizure treatment, Neurology will evaluate this patient , I agree with the rest of the REFERRAL MANAGER's assessment and plan, Richardson Baez MD. cc: MD Neil Montes MD [facility]
[2018-08-10 01:20] LABS: UR AMPHETAMINES QUAL NONE DETECTED (NONE DETECT); UR BARBITUATES QUAL NONE DETECTED (NONE DETECT); UR BENZODIAZEPIN QUAL NONE DETECTED (NONE DETECT); UR CANNABINOIDS QUAL NONE DETECTED (NONE DETECT); UR COCAINE QUAL NONE DETECTED (NONE DETECT); UR METHADONE QUAL NONE DETECTED (NONE DETECT); UR OPIATES QUAL NONE DETECTED (NONE DETECT); UR OXYCODONE QUAL NONE DETECTED (NONE DETECT); UR PCP QUAL NONE DETECTED (NONE DETECT)
[2018-08-10] MEDS: NS 1,000 ML IV SCH ×3 (03:49→16:13)
[2018-08-10 05:35] LABS: BASO# 0.01 X1000 (0.0-0.2); BASO% 0.1 % (0.0-0.8); EOS# 0.03 X1000 (0.0-0.7); EOS% 0.3 % (0.0-10.0); HEMATOCRIT 33.6 % (42.0-52.0); HEMOGLOBIN 11.1 g/dL (14.0-18.0); IMM GRAN# 0.04 X1000 (0.0-0.04); IMM GRAN% 0.4 % (0.0-0.5); LYMPH# 1.69 X1000 (1.2-3.4); MCH 29.4 PG (27-31); MCV 89.1 FL (81-99); MONO# 0.88 X1000 (0.11-0.59); MONO% 7.8 % (1.7-9.3); MPV 9.4 FL (7.4-10.4); NEUT# 8.64 X1000 (1.4-6.5); NEUT% 76.4 % (42.2-75.2); PLT 670 X1000 (130-400); RBC 3.77 XMIL (4.7-6.1); RDW 14.7 % (11.5-14.5); WBC 11.29 X1000 (4.8-10.8)
[2018-08-10 05:57] LABS: AGAP 17; ALB/GLOB RATIO 1.3; ALBUMIN 3.8 g/dL (3.5-5.0); ALKALINE PHOSPHATASE 92 U/L (32-122); BUN 19 mg/dL (8-22); CALCIUM 8.8 mg/dL (8.8-10.2); CHLORIDE 100 mmol/L (98-107); CK TOTAL 153 U/L (24-204); COSMO 284; CREATININE 0.7 mg/dL (0.7-1.2); ESTIMATED GFR > 60; GLUCOSE 140 mg/dL (70-104); GOT 13 U/L (10-34); GPT 11 U/L (10-44); MAGNESIUM 1.7 mg/dL (1.5-2.7); POTASSIUM 3.9 mmol/L (3.5-5.1); SODIUM 140 mmol/L (136-145); TCO2 23 mmol/L (25-35); TOTAL BILIRUBIN 0.33 mg/dL (0.20-1.00); TOTAL PROTEIN 6.8 g/dL (6.3-8.3)
--- NOTE | 2018-08-10 06:31 | Diag Imaging Result Doc PS360 ---
EXAM: CHEST-PORTABLE HISTORY: follow up TECHNIQUE: Portable chest single view COMPARISON: 08/09/2018 FINDINGS: The lungs are well expanded. The heart is not enlarged. The vessels are not distended. There are no infiltrates. No effusion identified. IMPRESSION: Negative exam. Electronically signed by Kan Apodaca 08/10/2018 6:29 AM
--- NOTE | 2018-08-10 07:54 | EKG Report ---
Test Performed on : 08/10/2018 06:51:27 AM Test Reason : chest pain Blood Pressure : / mmHG Vent. Rate : 099 BPM Atrial Rate : 099 BPM P-R Int : 122 ms QRS Dur : 074 ms QT Int : 370 ms P-R-T Axes : 054 056 050 degrees QTc Int : 474 ms Normal sinus rhythm. Normal ECG When compared with ECG of 09-AUG-2018 22:45, (Unconfirmed) No significant change was found Confirmed by Zoya GAMING, Neil ([id number]) on 08/10/2018 9:20:01 AM
[2018-08-10] MEDS: CEREBYX 200 MG in NS 50 ML IV SCH ×2 (08:23→22:00)
--- NOTE | 2018-08-10 08:31 | EKG Report ---
Test Performed on : 08/09/2018 10:45:00 PM Test Reason : syncope Blood Pressure : / mmHG Vent. Rate : 107 BPM Atrial Rate : 107 BPM P-R Int : 128 ms QRS Dur : 072 ms QT Int : 354 ms P-R-T Axes : 065 070 075 degrees QTc Int : 472 ms Sinus tachycardia. Possible Left atrial enlargement Borderline ECG When compared with ECG of 09-AUG-2018 21:30, (Unconfirmed) No significant change was found Unconfirmed Result
--- NOTE | 2018-08-10 11:38 | EKG Report ---
Test Performed on : 08/09/2018 9:30:41 PM Test Reason : AMS Blood Pressure : / mmHG Vent. Rate : 116 BPM Atrial Rate : 116 BPM P-R Int : 130 ms QRS Dur : 070 ms QT Int : 336 ms P-R-T Axes : 046 047 061 degrees QTc Int : 467 ms Sinus tachycardia. Otherwise normal ECG When compared with ECG of 09-AUG-2018 21:29, (Unconfirmed) No significant change was found Unconfirmed Result
--- NOTE | 2018-08-10 15:08 | CONSULTATION ---
DATE OF CONSULTATION: 08/10/2018 Mr. Ibanez is 73 years old. There is report that he had seemed altered mentally over the last week or so and had at least 1 fall. He presented to the emergency room and apparently had a seizure recognized there. Hospital record indicates he was discharged a few weeks ago on Levaquin. His home medicine list does not include benzodiazepines. I do not have any history of ethanol use. He has been afebrile here. Heart rate has ranged 70s-80s. Systolic blood pressure was 80s-110s earlier, 140s-160s in recent hours. Lab showed WBC count initially 13,000 and down to 11,000 later. Blood sugars have ranged 140s- 160s. Urine drug screen was all negative (recent hospital discharge medicine list includes hydrocodone p.r.n.). Noncontrast CT of the head on admission yesterday was reported unremarkable. There is reported past history of diabetes mellitus, restless legs, dyslipidemia, GERD. Medicine list here shows he has lorazepam p.r.n. with 2 mg given late last night and no other doses recorded that I see. He received fosphenytoin 1000 mg last night and continued 200 mg IV q.12 hours. On exam now, Mr. Ibanez is supine, head turned slightly to the left, eyes tonically to the left, twitching around the face. I do not see any definite twitching in the limbs. He used his left limbs more purposefully than the right but that was not consistent and he did use all limbs to command. Tone seems a little bit increased in the right arm compared to the left. He did a little better with left [id number] than with the right. Plantar response is silent bilaterally. He answered simple questions correctly. Sometimes, he seemed inattentive or unable to respond. Head is unremarkable. Neck shows no meningismus. IMPRESSION: Recent seizure reportedly recognized in the emergency room, possibility of continued seizures now. Reason for seizure onset is not certain. I do not find a history of head injury, alcohol abuse, illicit drug use, benzodiazepine withdrawal, stroke, prior seizure. Levaquin has been associated with seizure and that drug has been stopped. He has some fairly minor metabolic findings on chemistry profile but nothing that generally would be sufficient to explain seizure. I have ordered EEG and further plans will depend on that report which should be available soon. I will empirically increase his phenytoin dose now and check phenytoin level soon after dose. Thanks for asking neurology to see Mr. Ibanez. cc: MD Neil Lai III, MD MTDD
--- NOTE | 2018-08-10 16:00 | PROGRESS NOTE ---
DATE: 08/10/2018 Mr. Ibanez was brought into the ER last night with altered mental status. He, according to the ER , he had two seizures in the emergency room. He was admitted to ICU and neurology consult has been obtained. He was given Ativan last night and was given fosphenytoin 200 mg IV. He is somewhat drowsy at the present time and vital signs are stable. Electrolyte status is normal. Liver and kidney functions are normal. Overall condition is unchanged. He is NPO. We will continue to watch him. cc: Neil Kenny MD
[2018-08-10] MEDS ORDERED: CEREBYX IV ONE (16:24)
[2018-08-10] MEDS ORDERED: CEREBYX 500 MG in NS 50 ML IV ONE (16:30)
--- NOTE | 2018-08-10 20:04 | CONSULTATION ---
DATE OF CONSULTATION: 08/10/2018 ATTENDING AND REFERRING PHYSICIAN: Dr. Kenny. HISTORY OF PRESENT ILLNESS: This 73-year-old male was admitted to the hospital in early July with abdominal pain, nausea, vomiting and scrotal swelling. Evaluation revealed a necrotic left testis that was close to end-stage and was about ready to spontaneously drain through the left hemiscrotum. He underwent left orchiectomy and right orchidopexy. The scrotal skin on the left side was debrided somewhat and closed. The patient did not keep followup appointments in the Urology Clinic. He was admitted today with mental status changes and new onset seizure activity. The patient has been evaluated by neurology and is undergoing treatment. The patient appears somewhat obtunded but does answer some questions. He states his abdominal pain has completely resolved and he has no scrotal pain. PAST MEDICAL HISTORY: 1. Coronary artery disease. 2. Hypertension. 3. History of congestive heart failure. 4. Elevated cholesterol. 5. Diabetes. 6. Peripheral neuropathy. CURRENT MEDICATIONS: Documented on the chart. PAST SURGICAL HISTORY: 1. As noted in the history of present illness. 2. Cataract surgery. 3. Right hydrocelectomy. 4. Left foot trauma surgery. SOCIAL HISTORY: Cigarettes over a pack a day for 18 years. Quit in 1989. ETOH use is negative. ALLERGIES: He is allergic to penicillin. REVIEW OF SYSTEMS: Could not really be obtained. PHYSICAL EXAMINATION: General: A normally developed, well-nourished, age apparent, white male, who is cooperative. HEENT: Normal for age. He is essentially edentulous. Neck: Supple. Cardiovascular: Regular rate and rhythm. Lungs: Clear. Abdomen: Protuberant. Soft, nontender. No hepatosplenomegaly or masses. Normal bowel sounds. : Normal uncircumcised male. Foreskin retracts. Meatus is normal. The scrotum has eschar covering the previous wound whose sutures have completely dissolved out. The scrotum has improved tremendously from his discharge exam. There is no fluctuance and only minimal induration under the eschar. The right testis is palpably normal. Rectal: Exam on 07/20/2018 revealed a normal sphincter tone, prostate about 40 g, smooth and symmetric. Nontender to palpation. Extremities: No clubbing, cyanosis, or edema. Neuro: No focal deficits. He moves all extremities. He does have a Wong catheter in place. LABORATORY EVALUATION: Has a white count of 11.29, hemoglobin 11.1, hematocrit 33.6, and platelets are 670,000. Serum electrolytes are normal. BUN 19, creatinine 0.7. IMPRESSION: 1. Mental status changes with seizure activity. 2. Status post left orchiectomy and right orchidopexy. 3. Some necrotic area or eschar over the suture line in the mid scrotum. This has greatly improved since his discharge. This eschar will fall off over the next few weeks. 4. Washing with soap and water or Vashe solution will help speed up the process. Thank you for this consultation. cc: MD Neil Rangel MD [facility]
[2018-08-10] MEDS ORDERED: NS 500 ML ONE (22:38)
[2018-08-11] MEDS: NS 1,000 ML IV SCH ×4 (01:10→21:16)
[2018-08-11] MEDS: CEREBYX 200 MG in NS 50 ML IV SCH ×2 (08:41→21:15)
--- NOTE | 2018-08-11 10:18 | PROGRESS NOTE ---
DATE: 08/11/2018 SUBJECTIVE: Mr. Ibanez is still drowsy. There is no neck stiffness. General condition is about the same. Vital signs are stable. CBC shows white count of 11.29, hemoglobin 11.1. Urinalysis was negative. Electrolyte status, BUN, creatinine are within normal range. We are going to continue the current management and watch him closely. -0 cc: Neil Kenny MD
[2018-08-11] MEDS: HUMULIN R SUBQ SCH ×2 (10:43→16:02)
--- NOTE | 2018-08-11 12:03 | EEG REPORT ---
DATE: 08/10/2018 REFERRING: Martina Mckeon III, MD BACKGROUND INFORMATION/TECHNIQUE: This is a digitally recorded portable routine EEG with video. HISTORY: A 73-year-old male patient, admitted with question of seizure. EEG is ordered to detect evidence of seizures. ELECTROENCEPHALOGRAPHIC FINDINGS: This is a technically limited study due to frequent diffuse myogenic and some movement artifact necessitating heavy filtering. A posterior dominant alpha rhythm is not seen. The background consists of theta slowing with intermixed faster frequencies. No definite persistent focal slowing. No definite epileptiform discharges. No seizures. Hyperventilation is not performed. Photic stimulation does not alter the record. No definite drowsiness patterns. Stage II sleep is not seen. The EKG is largely uninterpretable. The patient has periods of a chewing motion and eye blinking during this study. Electrographically, there is associated chewing artifact, but no definite epileptiform EEG correlate. IMPRESSION AND CLINICAL CORRELATION: Abnormal routine electroencephalogram due to mild generalized slowing, suggestive of a mild nonspecific encephalopathy. No definite epileptiform discharges or seizures seen on the current study. This does not rule out an underlying seizure disorder. Clinical correlation is recommended. Clinical chewing and eye blink motion seen on the current study have no definite epileptiform EEG correlate, suggesting that these are nonepileptic in nature. Clinical correlation is recommended. cc: MD Martina Villafana III, MD Amit V. Vora, MD
[2018-08-11] MEDS ORDERED: ATIVAN IV PRN (13:23)
--- NOTE | 2018-08-11 13:48 | PROGRESS NOTE ---
DATE: 08/11/2018 Mr. Ibanez continues afebrile. I do not see anything remarkable in the lab work. He has not been communicating. Telephone history from his partner is that Mr. Ibanez has been stable neurologically and cognitively intact until the last week or so. There is no known history of stroke, serious head injury, previous seizure. There is a remote history of significant ethanol use but apparently no recent history of ethanol ingestion. In the last week, Mr. Ibanez seemed to have change in personality. For example, partner reports he spent $50 on Easter candy on sale. He spent $70 on junk food. Partner reports Mr. Ibanez generally does not purchase these items. Partner reports Mr. Ibanez was trying to mow the grass on a riding mower in a rainstorm last week. Partner reports seeing Mr. Ibanez seated at the table on the day of admission and Mr. Ibanez seemed suddenly to lose consciousness and he became limp. He was sliding out of the chair and partner assisted him to the floor. Partner reports Mr. Ibanez bumped his head on the chair. Partner did not witness rigidity or jerking movement but, after arrival at the emergency room, there was apparently generalized convulsion noted, two episodes. Partner reports Mr. Ibanez has never had current appearance before. Partner reports there were some medicine changes recently and he wondered if medication effect might have explained some of the changes in personality and behavior. However, partner cannot tell me what was the recent medication. Chart indicates he had Levaquin and hydrocodone p.r.n. for pain. On exam, Mr. Ibanez is still, breathing comfortably. With moderate stimulation, he was awake and alert. He followed some simple commands consistently including holding up fingers. He moved all limbs to command. There is full lateral eye movement. He counted fingers correctly in the left and right visual field with both eyes open. Facial motility is symmetric. Head is unremarkable. There is no meningismus. Limb tone is symmetric. IMPRESSION: Apparent global encephalopathy, uncertain etiology. There was reported seizure early in the admission. There has been behavior and personality change for the last week or so. Explanation is not clear to me. I wonder if he might have resumed ethanol use and then had ethanol withdrawal seizure. He has had some tremulousness but his vital signs do not look like hyper-autonomic situation. Partner believes patient has not resumed ethanol ingestion. I wonder about other substance ingestion. Urine drug screen was all negative on admission. I think MRI would be reasonable, when practical. We might need to consider checking CSF. I have asked nursing staff to inspect for tick. We might need to check HIV status. Thanks for asking neurology to see Mr. Ibanez. cc: MD Neil Lai III, MD MTDD
--- NOTE | 2018-08-11 15:56 | Diag Imaging Result Doc PS360 ---
EXAM: MRI BRAIN W/WO CONTRAST INDICATION: persistent altered consciousness COMPARISON: CT head dated 08/09/2018. No prior MRI is available for comparison. FINDINGS: There is no evidence of acute infarct. However, there is symmetric cortical increased signal on diffusion involving the insular cortices and inferomedial frontal lobe cortices (mainly the orbitofrontal regions) bilaterally. No definite low signal is seen on the ADC map. There is signal hyperintensity in these regions on T2 and FLAIR as well. There is no associated enhancement. These findings are nonspecific. They can be transient and there has been recent seizure activity. Various causes of encephalitis should also be considered. Herpes encephalitis is possible but is unlikely given the lack of enhancement and there being no blood products. There is no discrete intracranial mass, mass effect, or intracranial hemorrhage. The surrounding soft tissues and bony structures are essentially unremarkable. IMPRESSION: Abnormal cortical signal in the inferomedial frontal lobes and insular cortices bilaterally. Although nonspecific, this pattern can be associated with recent seizure activity. Electronically signed by Richard Husain 08/11/2018 3:54 PM
[2018-08-12] MEDS: HUMULIN R SUBQ SCH ×4 (06:15→15:41)
[2018-08-12] MEDS: NS 1,000 ML IV SCH ×3 (07:34→15:48)
[2018-08-12] MEDS: CEREBYX 200 MG in NS 50 ML IV SCH ×2 (08:55→20:12)
--- NOTE | 2018-08-12 10:27 | PROGRESS NOTE ---
DATE: 08/12/2018 SUBJECTIVE: Mr. Ibanez is doing better. His brain MRI shows that there is a possibility of recent seizure from the normal cortical signal. He is more alert today. We are going to try clear liquids on him. We will also try to get electrolytes tomorrow morning. cc: Neil Kenny MD
--- NOTE | 2018-08-12 12:34 | PROGRESS NOTE ---
DATE: 08/12/2018 SUBJECTIVE: Mr. Ibanez has not had significant change reported overnight. He has not been noted to be consistently awake and alert. MRI scan showed diffusion weighted signal in the frontal temporal cortical regions bilaterally, fairly symmetric on the left and right. There was not corresponding ADC map signal. There is not evidence of definite discrete stroke, mass, other significant finding. He continues afebrile. WBC count is down to 11,000. Phenytoin level was 18.8 a few days ago and he continues fosphenytoin 200 mg q.12 hours. EEG showed generalized slowing and no epileptiform discharges or other features of encephalitis. OBJECTIVE: On exam, he seemed to be sleeping. With moderate level of noxious stimulation, he was awake, briefly alert, followed some simple commands and then seemed quickly back to sleep. Limb tone is symmetric. Plantar response is extensor bilaterally. Neck is supple without meningismus. There are full lateral eye movements. IMPRESSION: Global encephalopathy, etiology not yet determined. Several possibilities as mentioned yesterday. We will go ahead with CSF collection and further plans will depend on CSF reports and on his clinical course. HIV is pending. Thanks for asking Neurology to see Mr. Ibanez. cc: MD Neil Lai III, MD MTDD
--- NOTE | 2018-08-12 12:48 | OPERATIVE NOTE ---
PROCEDURE DATE: 08/12/2018 Lumbar puncture was done at the L4 space on 1st pass with opening pressure 22 cm of CSF. Crystal clear fluid was obtained and sent to the lab. Closing pressure was about 10 cm. He tolerated this well. cc: MD Neil Lai III, MD
[2018-08-12 14:33] LABS: GLUCOSE CSF 103 mg/dL (39-75); PROTEIN CSF 35.9 mg/dL (15-45)
[2018-08-12 14:38] LABS: APPEARANCE CLEAR; RBC BF 5 /cumm; WBC BF 2 /cumm
[2018-08-13] MEDS: NS 1,000 ML IV SCH ×3 (00:38→16:49)
[2018-08-13] MEDS: HUMULIN R SUBQ SCH ×5 (00:39→20:24)
[2018-08-13 06:18] LABS: AGAP 21; BUN 7 mg/dL (8-22); CALCIUM 8.6 mg/dL (8.8-10.2); CHLORIDE 97 mmol/L (98-107); COSMO 276; CREATININE 0.7 mg/dL (0.7-1.2); ESTIMATED GFR > 60; GLUCOSE 132 mg/dL (70-104); POTASSIUM 3.2 mmol/L (3.5-5.1); SODIUM 138 mmol/L (136-145); TCO2 20 mmol/L (25-35)
--- NOTE | 2018-08-13 09:07 | PROGRESS NOTE ---
DATE: 08/13/2018 LOCATION: ICU bed 16. SUBJECTIVE: Mr. Ibanez has been more alert. He gradually improved in the last 24 hours. He has not had further seizure recognized. HIV antibody screen remains pending from a few days ago. No new CSF lab reports today. He continues afebrile. On exam, Mr. Ibanez is awake, alert, attentive. He answered simple questions appropriately. Speech is not significantly dysarthric. Language function is intact on brief bedside testing. He was oriented to [facility]. He was not certain about the day of the week or the month. He was able to provide some history to me that he seemed to be aware that he was not himself for the last week or so. He recalls being told that he had a seizure several days ago. He reports no recent ethanol use, no illicit substance use, no new medications, no head injury, no sense of being ill, and specifically no fever. He reports he has not felt like this before. I do not have any new thoughts today. His improvement is encouraging and reassuring. We need to wait on pending lab results. Will continue fosphenytoin 200 mg every 12 hours, and plan to switch that to p.o. phenytoin when he demonstrates sustained ability to swallow. Thank you for asking Neurology to see Mr. Ibanez. cc: MD Neil Lai III, MD MTDD
[2018-08-13] MEDS: DILANTIN PO SCH ×2 (09:09→20:24)
--- NOTE | 2018-08-13 10:39 | PROGRESS NOTE ---
DATE: 08/13/2018 Mr. Ibanez is doing much better. He is alert, oriented. He had a spinal tap done yesterday by Dr. Gambino. I am going to step him up to the soft diet today as he is much more alert, answered most of the questions correctly today. Vital signs are stable. He will continue the current regimen. -0 cc: Neil Kenny MD
[2018-08-13 14:07] LABS: VDRL CSF SEE COMMENTS
[2018-08-13 23:03] LABS: HIV ANTIBODY SCREEN SEE COMMENTS
[2018-08-14] MEDS: NS 1,000 ML IV SCH ×2 (01:20→08:02)
[2018-08-14 04:35] LABS: BASO# 0.04 X1000 (0.0-0.2); BASO% 0.4 % (0.0-0.8); EOS% 3.3 % (0.0-10.0); HEMATOCRIT 33.7 % (42.0-52.0); HEMOGLOBIN 11.4 g/dL (14.0-18.0); IMM GRAN# 0.07 X1000 (0.0-0.04); IMM GRAN% 0.8 % (0.0-0.5); LYMPH# 1.59 X1000 (1.2-3.4); LYMPH% 17.5 % (20.5-51.1); MCH 30.3 PG (27-31); MCHC 33.8 g/dL (33-37); MCV 89.6 FL (81-99); MONO# 1.23 X1000 (0.11-0.59); MONO% 13.5 % (1.7-9.3); MPV 9.3 FL (7.4-10.4); NEUT# 5.86 X1000 (1.4-6.5); NEUT% 64.5 % (42.2-75.2); PLT 454 X1000 (130-400); RBC 3.76 XMIL (4.7-6.1); RDW 14.5 % (11.5-14.5); WBC 9.09 X1000 (4.8-10.8)
[2018-08-14] MEDS: HUMULIN R SUBQ SCH ×4 (06:05→20:56)
[2018-08-14] MEDS: KLOR-CON PO SCH (08:02)
[2018-08-14] MEDS: DILANTIN PO SCH ×2 (08:02→20:56)
[2018-08-14 08:24] LABS: AGAP 14; BUN 7 mg/dL (8-22); CALCIUM 8.1 mg/dL (8.8-10.2); CHLORIDE 103 mmol/L (98-107); COSMO 281; CREATININE 0.7 mg/dL (0.7-1.2); ESTIMATED GFR > 60; GLUCOSE 132 mg/dL (70-104); POTASSIUM 2.5 mmol/L (3.5-5.1); SODIUM 141 mmol/L (136-145); TCO2 24 mmol/L (25-35)
[2018-08-14] MEDS: POTASSIUM CHLORIDE 30 MEQ in NS 1,000 ML IV SCH ×2 (09:52→16:16)
--- NOTE | 2018-08-14 15:39 | PROGRESS NOTE ---
DATE: 08/14/2018 SUBJECTIVE: Mr. Ibanez continues awake, alert, attentive, and he seems appropriate now. He does not have any new history to provide today. Again, he denies recent ethanol use or illicit drug use. I reviewed the CSF reports. There is nothing new and nothing definitely positive. He presented with history of altered behavior or altered personality over approximately a week and then witnessed seizure. The etiology is not certain. He has recovered and may be near baseline now. I do not have any urgent suggestion. We might consider repeat imaging and repeat EEG later. I would continue phenytoin at least for the short term. I will be glad to follow Mr. Ibanez as an outpatient. Thanks for asking Neurology to see Mr. Ibanez. cc: MD Neil aLi III, MD
[2018-08-15] MEDS: POTASSIUM CHLORIDE 30 MEQ in NS 1,000 ML IV SCH ×3 (02:57→20:28)
[2018-08-15] MEDS: HUMULIN R SUBQ SCH ×4 (06:15→20:27)
--- NOTE | 2018-08-15 06:58 | PROGRESS NOTE ---
DATE: 08/14/2018 Mr. Ibanez is alert, more oriented now. He has hypokalemia. Potassium went down to 2.5. We are supplementing the potassium IV. He is eating some by mouth also. We will transfer him out of the ICU today. -2 cc: Neil Kenny MD
[2018-08-15 07:50] LABS: AGAP 10; BUN 7 mg/dL (8-22); CALCIUM 7.5 mg/dL (8.8-10.2); CHLORIDE 107 mmol/L (98-107); COSMO 289; CREATININE 0.7 mg/dL (0.7-1.2); ESTIMATED GFR > 60; GLUCOSE 178 mg/dL (70-104); POTASSIUM 3.2 mmol/L (3.5-5.1); SODIUM 144 mmol/L (136-145); TCO2 27 mmol/L (25-35)
[2018-08-15] MEDS: KLOR-CON PO SCH (08:52)
[2018-08-15] MEDS: DILANTIN PO SCH ×2 (08:52→20:27)
--- NOTE | 2018-08-15 13:18 | PROGRESS NOTE ---
DATE: 08/15/2018 SUBJECTIVE: Mr. Ibanez is doing fairly well. He is very weak. We are going to start physical therapy on him and continue the current management on him. He was found to have some seizures in the hospital. He is being followed by Dr. Mckeon. Overall condition is stable, -7 cc: Neil Kenny MD
[2018-08-16] MEDS: POTASSIUM CHLORIDE 30 MEQ in NS 1,000 ML IV SCH ×4 (03:30→17:49)
[2018-08-16] MEDS: HUMULIN R SUBQ SCH ×4 (06:14→21:19)
[2018-08-16] MEDS: DILANTIN PO SCH ×3 (10:00→21:19)
[2018-08-16] MEDS: KLOR-CON PO SCH (10:00)
--- NOTE | 2018-08-16 12:25 | PROGRESS NOTE ---
DATE: 08/16/2018 Mr. Ibanez definitely needs physical therapy. He is alert now. Vital signs are stable. Oral intake is stable. His blood sugar is 158. We will continue with the current management. -3 cc: Neil Kenny MD
[2018-08-17] MEDS: POTASSIUM CHLORIDE 30 MEQ in NS 1,000 ML IV SCH (04:34)
[2018-08-17] MEDS: HUMULIN R SUBQ SCH (06:17)
[2018-08-17 07:34] VITALS: BP 135/73
--- NOTE | 2018-08-17 08:31 | PROGRESS NOTE ---
DATE: 08/17/2018 Mr. Ibanez is doing better. He is alert. He wants to go home today. We will discharge him with a prescription of Dilantin. cc: Neil Kenny MD
[2018-08-17] MEDS: KLOR-CON PO SCH (08:57)
[2018-08-17] MEDS: DILANTIN PO SCH (08:57)
--- NOTE | 2018-08-17 13:32 | DISCHARGE SUMMARY ---
ADMISSION DATE: 08/10/2018 DISCHARGE DATE: 08/17/2018 BRIEF HISTORY: Mr. Ibanez, who is a 73-year-old white gentleman, was admitted because of change in mental status. He had some seizures while he was in the emergency room. IMAGING: Chest x-ray was negative. EKG revealed regular sinus rhythm. EEG was abnormal due to mild generalized slowing suggestive of nonspecific encephalopathy. Brain MRI showed abnormal cortical signal in the frontal lobe. The pattern associated with recent seizure activity. Initial CT scan was negative for hemorrhage. There was mild cortical atrophy noted. COURSE IN THE HOSPITAL: He was admitted to ICU. He was almost stuporous when he came in. Neurology consult was obtained with Dr. Mckeon. He is continued to see him regularly. He did a spinal tap which was unremarkable. Finally came to the conclusion that he had a seizure episode and this probably was postictal and some encephalopathy was suspected in the beginning. FINAL DIAGNOSIS: Encephalopathy, postictal changes. We will treat him with Dilantin 200 mg b.i.d. He will also be given potassium supplement as he had hypokalemia during the stay. We will discharge him today to be followed in about 7 days. cc: Neil Kenny MD
--- NOTE | 2018-08-17 14:50 | PROGRESS NOTE ---
DATE: 08/17/2018 Mr. Ibanez reports he seems completely recovered and back to baseline. He has been out of bed and walking without assistance. He has not had any further seizure. He is tolerating phenytoin 200 mg b.i.d. We discussed that dose and he understands instructions. We discussed the [place] law as it pertains to driving and he understands his responsibility. I told him to be careful with any activity that might result in serious injury to him or to someone else if he were to have a seizure or other episode of altered awareness. Thanks for asking Neurology to see Mr. Ibanez. I will plan to see him at least once as an outpatient to follow up on the phenytoin dosing and to see if we need to recommend longer-term antiseizure medicine. cc: MD Neil Lai III, MD MTDD
== END 2018-08-17 11:19 | disposition home or self-care (01) | DRG 101 ==
LOC: ED 20:44 → EDIPHOLD 08-10 01:21 → SUATTDRO 08-10 01:21 → ICU 08-10 04:45 → 3N 08-14 18:04
PROVIDERS: ADMIT Internal Medicine; ATTEND Internal Medicine
CPT/HCPCS: 70450; 70553; 71010; 71045; 80048; 80053; 80101; 80185; 80196; 80301; 80307; 80320; 80324; 80329; 80345; 80346; 80353; 80358; 80361; 80365; 81001; 82003; 82055; 82550; 82805; 82945; 82948; 83605; 83735; 83992; 84157; 84484; 85025; 85610; 85730; 86403; 86592; 86701; 87015; 87040; 87102; 87116; 87206; 87389; 87496; 87529; 87532; 87653; 87798; 88312; 89050; 93005; 93010; 94761; 95816; 96361; 96365; 96372; 97116; 97162; 99285; 99999; A9270; A9579; G0431; G0434; G0479; G0480; G6038; G6039; G6040; J3480; J7030; J7040; Q2009; XXXXX

== ENCOUNTER 2019-01-11 09:36 | Inpatient (IN) ==
[2019-01-11] MEDS ORDERED: D50W SYRINGE IV ONE (09:58)
[2019-01-11] MEDS ORDERED: D5 NS 1,000 ML IV ONE (10:52)
--- NOTE | 2019-01-11 10:54 | PROVIDER DOCUMENTATION ---
HPI-General Adult - General Chief Complaint: Low Blood Sugar Stated Complaint: HYPOGLYCEMIA Time Seen by Provider: 01/11/19 10:52 Source: patient Allergies/Adverse Reactions: Patient Allergies Allergy/AdvReac Type Severity Reaction Status Date / Time Penicillins Allergy Mild RASH Verified 01/11/19 10:18 Home Medications: Home Medication List Medication Instructions Recorded Confirmed Last Taken Type Amlodipine Besylate 5 mg PO DAILY 07/20/18 01/11/19 01/11/19 History Gemfibrozil [Lopid] 600 mg PO BID 07/20/18 01/11/19 01/11/19 History Glipizide 5 mg PO BID 07/20/18 01/11/19 01/11/19 History Metformin HCl [Metformin HCl ER] 1,000 mg PO BID 07/20/18 01/11/19 01/11/19 History Omeprazole 20 mg PO DAILY 07/20/18 01/11/19 01/11/19 History Pravastatin Sodium 40 mg PO HS 07/20/18 01/11/19 01/10/19 History Aspirin EC 81 mg PO DAILY tab 07/24/18 01/11/19 01/11/19 Rx Tamsulosin [Flomax] 0.4 mg PO QHS cap 07/24/18 01/11/19 01/11/19 Rx Levetiracetam 1 tab PO BID 01/11/19 01/11/19 01/11/19 History - History of Present Illness -Gen Adult Nature of Presenting Problems: 73 yr old M, hx of DM, HTN, presenting after being found unresponsive by some family members earlier this morning. The pt reports that he had been having diarrhea for the past few days, and had not eaten much as a result. When he was found by EMS, he was noted to have a blood sugar of 33, which did improve to 72 after dextrose administration. The patient himself does not recall the events that led him to the hospital, but at the time of this examination, is alert, responds appropriately, and denies any pain. Onset/Duration: reports: just prior to arrival Similar Symptoms Previously?: No - Diabetes Related Context Context: reports: low blood sugar, unresponsive Review of Systems - Adult - REVIEW OF SYSTEMS - ADULT Constitutional: reports: no symptoms reported Eyes: reports: no symptoms reported Ears, Nose, Mouth & Throat: reports: no symptoms reported Cardiovascular: reports: no symptoms reported Respiratory: reports: no symptoms reported Gastrointestinal: reports: no symptoms reported Genitourinary: reports: no symptoms reported Musculoskeletal: reports: no symptoms reported Neurological: reports: no symptoms reported Past History - Adult - PAST MEDICAL HISTORY-ADULT Review of Records: reports: Old Records Reviewed, Nursing Assessment Review Cardiovascular: reports: HTN, [place] Respiratory: reports: denies history Neurological: reports: denies history Endocrine/Immune: reports: Diabetes Diabetes Type: Type 2 Diabetes controlled by:: PO Meds Physical Exam-General - PHYSICAL EXAM-ADULT Initial Vital Signs Reviewed: Yes - CONSTITUTIONAL General Appearance: alert, no apparent distress - EYES Eyes: PERRL/EOMI - HEAD, EARS, NOSE, MOUTH & THROAT HENMT: normocephalic/atraumatic, moist mucous membranes - RESPIRATORY Respiratory: lungs clear, normal breath sounds - CARDIOVASCULAR Cardiovascular: regular rate, rhythm - GASTROINTESTINAL (ABDOMEN) Abdominal Exam: normal bowel sounds, non tender, soft - NEUROLOGIC Neurologic: grossly normal - PSYCHIATRIC Psych/Mental Status: normal mood/affect, oriented x 3 Progress - PLAN OF CARE/RESULTS Progress/Plan/Lab Results: Vital Signs - 8 hr 01/11/19 09:58 Temperature 97.5 F L Pulse Rate 100 H Respiratory Rate 20 Blood Pressure 120/67 O2 Sat by Pulse Oximetry 100 Laboratory Results - last 24 hr 01/11/19 01/11/19 01/11/19 09:45 10:27 10:44 POC Glucose 72 D 39 L 143 H D Orders Category Date Time Status Regular Diet Diet 01/11/19 09:58 Active Dextrose 5%-0.9% NaCl Inj [D5 Ns] 1,000 ml Med 01/11/19 10:52 Active IV 125 mls/hr Dextrose 50% Syringe [D50w Syringe] Med 01/11/19 09:58 Discontinued 50 ml IV NOW ONE Leukocytes, WBCs on UA; CT Abd/pelvis shows possible mild diverticulitis. Spoke to hospitalist about admission. Pt made aware of results. Result Diagrams: 01/11/19 11:30 01/11/19 11:30 - XRAY 1 XRAY Study: Chest Impression: See EMR Report XRAY Interpretation: no pneumonia - CT/MRI 1 CT Study: Abdomen, Pelvis Impression: See EMR Report CT Results: possible mild diverticulitis - CONSULTS/PCP/HOSPITALIST Notification #1 *Consult/PCP/Hospitalist*: Hue Time Discussed: 14:25 Consult Disposition: Admit #2 Consult: Dr. Kenny Time Discussed: 14:50 Consult Disposition: Admit Departure - Departure Date of Disposition Decision: 01/11/19 Time of Disposition Decision: 14:55 DIAGNOSIS: Hypoglycemia Disposition: ADMITTED INPATIENT 09 Certified Medical Emergency: Emergent Condition: Fair - Critical Care Note This patient required my direct & personal management of CC.: No Attestation - Physician/ KATHY Attestation The physician spent face to face time with patient:: Yes Advanced Practice Provider documentation review:: Supervising physician onsite and consulted in the evaluation and care of this patient. The physician did have a face to face encounter with the patient.
[2019-01-11 11:49] LABS: BASO# 0.02 X1000 (0.0-0.2); BASO% 0.2 % (0.0-0.8); HEMATOCRIT 37.8 % (42.0-52.0); IMM GRAN# 0.02 X1000 (0.0-0.04); IMM GRAN% 0.2 % (0.0-0.5); LYMPH# 1.14 X1000 (1.2-3.4); LYMPH% 9.5 % (20.5-51.1); MCH 29.5 PG (27-31); MCHC 34.4 g/dL (33-37); MCV 85.9 FL (81-99); MONO# 1.16 X1000 (0.11-0.59); MONO% 9.7 % (1.7-9.3); MPV 9.8 FL (7.4-10.4); NEUT# 9.67 X1000 (1.4-6.5); NEUT% 80.4 % (42.2-75.2); PLT 485 X1000 (130-400); RDW 13.5 % (11.5-14.5); WBC 12.01 X1000 (4.8-10.8)
[2019-01-11 12:05] LABS: ALBUMIN 4.2 g/dL (3.5-5.0); CALCIUM 8.9 mg/dL (8.8-10.2); CREATININE 3.3 mg/dL (0.7-1.2); TOTAL BILIRUBIN 0.38 mg/dL (0.20-1.00); TOTAL PROTEIN 8.5 g/dL (6.3-8.3)
[2019-01-11 12:55] LABS: INR 1.29; PROTIME 16.4 Seconds (11.0-16.0)
[2019-01-11 12:56] LABS: PTT 38.8 Seconds (22.3-41.8)
--- NOTE | 2019-01-11 13:46 | Diag Imaging Result Doc PS360 ---
EXAM: CT HEAD W/O CONTRAST HISTORY: LOC TECHNIQUE: CT head without contrast COMPARISON: 08/09/2018 FINDINGS: No parenchymal hemorrhage. No epidural or subdural hematoma. No subarachnoid hemorrhage. There is atrophy with chronic microvascular ischemic changes. No mass identified on this noncontrasted exam. No hydrocephalus. Right maxillary mucosal thickening.. IMPRESSION: 1.No hemorrhage 2.Atrophy with chronic microvascular ischemic changes This exam was performed using automated exposure control, adjustment of mA or kV according to patient size, and/or use of iterative reconstruction technique. Electronically signed by Kan Apodaca 01/11/2019 1:44 PM
--- NOTE | 2019-01-11 13:52 | Diag Imaging Result Doc PS360 ---
EXAM: CT ABDOMEN/PELVIS W/O CONTRAST HISTORY: abdominal pain TECHNIQUE: CT abdomen and pelvis without contrast COMPARISON: None. FINDINGS: No calcified gallstones or adjacent inflammation. No focal hepatic abnormality identified on this noncontrasted exam. No splenomegaly. No inflammation about the pancreas. Normal adrenal glands. Severe atherosclerosis. No aortic aneurysm. Mild perinephric inflammation. No renal stones. No hydronephrosis. There are multiple pelvic calcifications believed to be phleboliths. Two of these lies adjacent to the distal left ureter near the ureterovesical junction. However, these appear to be adjacent to the ureter and not within it and. No bowel obstruction. There are scattered colonic diverticula. Questionable mild adjacent inflammation with wall thickening in the sigmoid colon. Urinary bladder is not distended. Normal prostate. IMPRESSION: 1.Severe atherosclerosis 2.Extensive colonic diverticulosis with possible mild diverticulitis 3.Multiple pelvic phleboliths. This exam was performed using automated exposure control, adjustment of mA or kV according to patient size, and/or use of iterative reconstruction technique. Electronically signed by Kan Apodaca 01/11/2019 1:50 PM
--- NOTE | 2019-01-11 14:00 | Diag Imaging Result Doc PS360 ---
EXAM: CHEST-2 VIEWS HISTORY: cough TECHNIQUE: Chest two views COMPARISON: 08/10/2018 FINDINGS: The lungs are well expanded. The heart is not enlarged. The vessels are not distended. There are no infiltrates. No pleural effusions. IMPRESSION: No pneumonia Electronically signed by Kan Apodaca 01/11/2019 1:57 PM
[2019-01-11 14:15] LABS: URINE SOURCE CLEAN CATCH
[2019-01-11 14:21] LABS: BILIRUBIN URINE NEGATIVE (NEGATIVE); BLOOD URINE MODERATE (NEGATIVE); COLOR YELLOW; GLUCOSE URINE NEGATIVE (NEGATIVE); KETONE URINE NEGATIVE (NEGATIVE); LEUKOCYTES URINE LARGE (NEGATIVE); NITRITE URINE NEGATIVE (NEGATIVE); PROTEIN URINE 100 mg/dL (NEGATIVE); SP GRAVITY URINE 1.014; TURBIDITY URINE HAZY (CLEAR); UROBILINOGEN URINE NORMAL (NORMAL)
[2019-01-11 14:23] LABS: UR EPITHELIAL CELLS <10 /HPF (<10); URINE BACTERIA 2+ /HPF; URINE WBC TNTC /HPF (<10)
[2019-01-11 14:29] LABS: UR AMPHETAMINES QUAL NONE DETECTED (NONE DETECT); UR BARBITUATES QUAL NONE DETECTED (NONE DETECT); UR BENZODIAZEPIN QUAL NONE DETECTED (NONE DETECT); UR CANNABINOIDS QUAL NONE DETECTED (NONE DETECT); UR COCAINE QUAL NONE DETECTED (NONE DETECT); UR METHADONE QUAL NONE DETECTED (NONE DETECT); UR OPIATES QUAL NONE DETECTED (NONE DETECT); UR OXYCODONE QUAL NONE DETECTED (NONE DETECT); UR PCP QUAL NONE DETECTED (NONE DETECT)
[2019-01-11 18:04] LABS: CK INDEX 0.5 (0.0-2.5); CK-MB 12.47 ng/mL (0.0-5.0)
[2019-01-11] MEDS: POTASSIUM CHLORIDE 10 MEQ in 1/2 NS 1,000 ML IV SCH (18:09)
[2019-01-11] MEDS: GLUCOTROL PO SCH (18:10)
[2019-01-11] MEDS: LEVAQUIN 500 MG/D5W 500 MG/100 ML IVPB IV SCH (18:19)
--- NOTE | 2019-01-11 19:47 | HISTORY AND PHYSICAL ---
HISTORY OF PRESENT ILLNESS: Mr. Ibanez, who is a 73-year-old white gentleman, was brought to the emergency room in an unconscious state. It was found that he had severe hypoglycemia and related hypoglycemic encephalopathy, and he was admitted. 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 It was performed by Dr. Villagran. PAST MEDICAL HISTORY: He has a known case of hypertension, seizure disorder, diabetes, and he had some encephalopathy in the past. The cause was not known. MEDICATIONS: Include Lopid, glipizide, levetiracetam, metformin, omeprazole, Pravachol and tamsulosin. SOCIAL HISTORY: He lives with his friend, and the friend actually saw that he was very drowsy and brought him to the emergency room. OTHER DETAILS OF PERSONAL, PAST AND FAMILY HISTORY: Noncontributory. PHYSICAL EXAMINATION: VITAL SIGNS: Reveal temperature normal, pulse 110 per minute, respiratory rate 17 per minute, blood pressure 151/67. HEAD: Normocephalic. EYES: Pupils PERRLA. Fundus examination normal. NECK: Supple. JVP normal. ENT EXAMINATION: Unremarkable. There is no evidence of lymphadenopathy, thyroid enlargement, pedal edema, calf tenderness, anemia, cyanosis or clubbing. Pedal pulses well felt. BREASTS: Normal. CHEST: Normal on inspection. LUNGS: Clear on auscultation. PMI in the normal position. HEART: Sounds normal. No murmur, gallop, rub noted. ABDOMEN: Nondistended. Hernia orifices normal. No guarding, rigidity, free fluid, masses, or organomegaly. Bowel sounds normal. RECTAL: Deferred. CENTRAL NERVOUS SYSTEM: Higher functions normal. Cranial nerves normal. Motor and sensory system examination unremarkable. Deep tendon reflexes normal. Plantars downgoing. Skull and spine examination normal for age. No cerebellar signs or signs of meningeal irritation on locomotor exam. SKIN: Unremarkable. He has left testicle missing. IMPRESSION: The patient has elevated BUN and creatinine. He was very hypoglycemic when he came in. Blood sugar is normal now, and he has urinary tract infection with history of renal failure and dehydration. PLAN: Start IV fluids, IV Levaquin. Watch him closely for neuro checks. cc: Neil Kenny MD
[2019-01-11] MEDS ORDERED: PATIENT'S OWN MED PO SCH (21:00)
[2019-01-11] MEDS: KEPPRA PO SCH (21:03)
[2019-01-11] MEDS: LOPID PO SCH (21:03)
[2019-01-11] MEDS: GLUCOPHAGE XR PO SCH (21:04)
[2019-01-11] MEDS: PRAVACHOL PO SCH (21:04)
[2019-01-12] MEDS: GLUCOTROL PO SCH ×2 (06:11→17:55)
[2019-01-12] MEDS: PRILOSEC PO SCH (06:12)
[2019-01-12 07:01] LABS: CALCIUM 7.6 mg/dL (8.8-10.2); CREATININE 2.9 mg/dL (0.7-1.2)
--- NOTE | 2019-01-12 07:14 | EKG Report ---
Test Performed on : 01/12/2019 06:39:41 AM Test Reason : CP Blood Pressure : / mmHG Vent. Rate : 092 BPM Atrial Rate : 092 BPM P-R Int : 134 ms QRS Dur : 078 ms QT Int : 376 ms P-R-T Axes : 070 074 072 degrees QTc Int : 464 ms Normal sinus rhythm. Normal ECG No previous ECGs available Confirmed by Cristian GAMING, Mitchel Juarez ([id number]) on 01/12/2019 12:00:13 PM
[2019-01-12] MEDS: POTASSIUM CHLORIDE 10 MEQ in 1/2 NS 1,000 ML IV SCH ×2 (09:08→21:55)
[2019-01-12] MEDS: KEPPRA PO SCH ×2 (09:09→20:08)
[2019-01-12] MEDS: LOPID PO SCH ×2 (09:09→20:08)
[2019-01-12] MEDS: GLUCOPHAGE XR PO SCH ×2 (09:09→20:09)
[2019-01-12] MEDS: FLOMAX PO SCH (09:54)
--- NOTE | 2019-01-12 11:25 | PROGRESS NOTE ---
DATE: 01/12/2019 The patient's preliminary blood cultures, one set was positive, and we do not have any sensitivity back or identification back. He is on IV Levaquin which we will continue. He is being placed on sliding scale. We will continue with the current management on him. His vital signs are stable. Lungs are clear. -1 cc: Neil Kenny MD
[2019-01-12] MEDS: LEVAQUIN 500 MG/D5W 500 MG/100 ML IVPB IV SCH (17:55)
[2019-01-12] MEDS: PRAVACHOL PO SCH (20:08)
[2019-01-12] MEDS: TYLENOL PM PO PRN (20:08)
[2019-01-13] MEDS: GLUCOTROL PO SCH ×2 (06:14→16:06)
[2019-01-13] MEDS: PRILOSEC PO SCH (06:15)
[2019-01-13] MEDS: POTASSIUM CHLORIDE 10 MEQ in 1/2 NS 1,000 ML IV SCH ×2 (08:33→21:21)
[2019-01-13] MEDS: FLOMAX PO SCH (08:35)
[2019-01-13] MEDS: KEPPRA PO SCH ×2 (08:35→21:23)
[2019-01-13] MEDS: LOPID PO SCH ×2 (08:35→21:22)
[2019-01-13] MEDS: GLUCOPHAGE XR PO SCH ×2 (08:36→21:22)
--- NOTE | 2019-01-13 13:08 | PROGRESS NOTE ---
DATE: 01/13/2019 Mr. Ibanez is in about the same general condition. He has UTI, as well as blood cultures are positive. We are giving him IV Levaquin, and will continue with the current management until we get the final results. -3 cc: Neil Kenny MD
[2019-01-13] MEDS: LEVAQUIN 500 MG/D5W 500 MG/100 ML IVPB IV SCH (18:01)
[2019-01-13] MEDS: PRAVACHOL PO SCH (21:22)
[2019-01-13] MEDS: TYLENOL PM PO PRN (22:08)
[2019-01-14] MEDS: GLUCOTROL PO SCH ×2 (05:59→17:17)
[2019-01-14] MEDS: PRILOSEC PO SCH (06:00)
[2019-01-14] MEDS: LOPID PO SCH ×2 (09:52→20:38)
[2019-01-14] MEDS: KEPPRA PO SCH ×2 (09:53→20:38)
[2019-01-14] MEDS: FLOMAX PO SCH (09:55)
[2019-01-14] MEDS: GLUCOPHAGE XR PO SCH ×2 (09:55→20:37)
[2019-01-14] MEDS: POTASSIUM CHLORIDE 10 MEQ in 1/2 NS 1,000 ML IV SCH ×3 (09:56→23:49)
--- NOTE | 2019-01-14 16:30 | PROGRESS NOTE ---
DATE: 01/14/2019 Mr. Ibanez had Klebsiella pneumonia isolated in the urine, sensitive to Levaquin and there was E. coli in 1 bottle of blood, 1 bottle had negative growth. The E. coli is also sensitive to levofloxacin. We will continue with the current management on him with IV Levaquin. His vital signs are stable. Blood sugars are stable also. -9 cc: Neil Kenny MD
[2019-01-14] MEDS: LEVAQUIN 500 MG/D5W 500 MG/100 ML IVPB IV SCH (17:17)
[2019-01-14] MEDS: PRAVACHOL PO SCH (20:38)
[2019-01-14] MEDS: TYLENOL PM PO PRN (20:43)
[2019-01-15] MEDS: GLUCOTROL PO SCH ×2 (06:01→16:33)
[2019-01-15] MEDS: PRILOSEC PO SCH (06:07)
[2019-01-15] MEDS: KEPPRA PO SCH ×2 (09:37→20:51)
[2019-01-15] MEDS: GLUCOPHAGE XR PO SCH ×2 (09:37→20:47)
[2019-01-15] MEDS: FLOMAX PO SCH (09:37)
[2019-01-15] MEDS: LOPID PO SCH ×2 (09:42→20:51)
[2019-01-15] MEDS: POTASSIUM CHLORIDE 10 MEQ in 1/2 NS 1,000 ML IV SCH (09:46)
--- NOTE | 2019-01-15 12:08 | DISCHARGE SUMMARY ---
ADMISSION DATE: 01/11/2019 DISCHARGE DATE: 01/15/2019 HISTORY OF PRESENT ILLNESS: Mr. Ibanez is a 74-year-old white male who was admitted with hypoglycemia as well as infection. His lab data revealed initial white count was 12.2. INR was 1.29. His blood sugars have been stable. When he came in, his blood sugar was 92. Potassium was normal. BUN was 34, creatinine 3.3. Repeat potassium was 4, BUN was 50, creatinine had come down to 2.9. Urinalysis revealed large WBCs and 10 to 2 RBCs. Urine drug screen was negative. COURSE IN THE HOSPITAL: He had one blood culture positive for E. coli, and urine culture was positive for Klebsiella, was sensitive to levofloxacin. We will be discharging him today with 500 mg Levaquin for 7 days, and he will stop his glipizide, as he had spells of hypoglycemia. IMPRESSION: 1. Hypoglycemic. 2. Encephalopathy. 3. Acute urinary tract infection. 4. Dehydration. 5. Renal failure. PLAN: We will see him in the office in about 7 days. cc: Neil Kenny MD
[2019-01-15] MEDS: LEVAQUIN 500 MG/D5W 500 MG/100 ML IVPB IV SCH (17:13)
[2019-01-15] MEDS: TYLENOL PM PO PRN (20:51)
[2019-01-15] MEDS: PRAVACHOL PO SCH (20:51)
[2019-01-16] MEDS: POTASSIUM CHLORIDE 10 MEQ in 1/2 NS 1,000 ML IV SCH ×2 (02:13→16:12)
[2019-01-16] MEDS: GLUCOTROL PO SCH ×2 (06:05→16:13)
[2019-01-16] MEDS: PRILOSEC PO SCH (06:05)
[2019-01-16] MEDS: KEPPRA PO SCH ×2 (09:24→20:08)
[2019-01-16] MEDS: FLOMAX PO SCH (09:24)
[2019-01-16] MEDS: GLUCOPHAGE XR PO SCH (09:24)
[2019-01-16] MEDS: LOPID PO SCH ×2 (09:24→20:08)
--- NOTE | 2019-01-16 17:25 | PROGRESS NOTE ---
DATE: 01/16/2019 SUBJECTIVE: A 74-year-old, white gentleman, brought to the emergency room with unconsciousness. The patient had severe hypoglycemia. The patient was found to have a UTI and sepsis. Patient treated with IV fluid, IV antibiotics. Clinically, patient was doing better. The patient was ready to be discharged, but he was weak and unsteady, and we decided to observe him and get some physical therapy prior to discharge. Today, patient is doing better. He was able to ambulate some with physical therapy. He denied any high-grade fever or chills. No chest pain. Oral intake was poor. The patient was complaining of diarrhea. No blood or mucus in the stool. No dysuria or hematuria. PAST MEDICAL HISTORY: Significant for hypertension, seizure disorder, diabetes, encephalopathy. OBJECTIVE: Vital signs: Noted. Neck: Supple. No JVD. Pupils equally reacting to light. Lungs: Bilateral good air entry present. Cardiovascular: S1 and S2 heard. Abdomen: Soft, nontender. Bowel sounds present. Central nervous system: Alert, awake. Able to move all 4 limbs. LABORATORY DATA: The patient's lab data done on January 12 noted. Last BUN was 50 creatinine 2.9. CONSIDERATION: 1. Sepsis. Patient had Escherichia coli in the blood, Klebsiella urinary tract infection. The patient had diarrhea today. I checked for Clostridium difficile colitis and it was negative. Other problems include: 2. Hypertension, doing well with current treatment. 3. Seizure disorder, on Keppra. 4. Hyperlipidemia, on Pravachol. 5. Benign prostatic hypertrophy, on Flomax. I am going to check appropriate labs. After reviewing labs, we will make necessary recommendations. Considering chronic kidney disease, I am going to hold his metformin and decrease glipizide to 1 tablet a day. cc: MD Neil Alicea MD
[2019-01-16] MEDS: LEVAQUIN 500 MG/D5W 500 MG/100 ML IVPB IV SCH (19:34)
[2019-01-16] MEDS: TYLENOL PM PO PRN (20:08)
[2019-01-16] MEDS: PRAVACHOL PO SCH (20:09)
[2019-01-17 05:42] LABS: BASO# 0.02 X1000 (0.0-0.2); BASO% 0.2 % (0.0-0.8); EOS# 0.16 X1000 (0.0-0.7); EOS% 1.5 % (0.0-10.0); HEMATOCRIT 34.3 % (42.0-52.0); IMM GRAN# 0.19 X1000 (0.0-0.04); IMM GRAN% 1.8 % (0.0-0.5); LYMPH# 1.96 X1000 (1.2-3.4); MCH 29.1 PG (27-31); MCHC 32.1 g/dL (33-37); MCV 90.7 FL (81-99); MONO# 1.03 X1000 (0.11-0.59); MPV 8.9 FL (7.4-10.4); NEUT# 6.97 X1000 (1.4-6.5); NEUT% 67.5 % (42.2-75.2); PLT 555 X1000 (130-400); RBC 3.78 XMIL (4.7-6.1); RDW 13.9 % (11.5-14.5); WBC 10.33 X1000 (4.8-10.8)
[2019-01-17] MEDS: POTASSIUM CHLORIDE 10 MEQ in 1/2 NS 1,000 ML IV SCH ×2 (05:54→20:19)
[2019-01-17] MEDS: PRILOSEC PO SCH (06:02)
[2019-01-17 06:06] LABS: ALB/GLOB RATIO 0.8; ALBUMIN 3.1 g/dL (3.5-5.0); CALCIUM 9.3 mg/dL (8.8-10.2); MAGNESIUM 2.2 mg/dL (1.5-2.7); POTASSIUM 4.6 mmol/L (3.5-5.1); TOTAL BILIRUBIN 0.29 mg/dL (0.20-1.00)
[2019-01-17] MEDS: GLUCOTROL PO SCH (09:08)
[2019-01-17] MEDS: FLOMAX PO SCH (09:08)
[2019-01-17] MEDS: LOPID PO SCH ×2 (09:08→20:21)
[2019-01-17] MEDS: KEPPRA PO SCH ×2 (09:08→20:21)
[2019-01-17] MEDS ORDERED: LEVAQUIN 250 MG/D5W 250 MG/50 ML IVPB IV SCH ×2 (10:30→18:00)
--- NOTE | 2019-01-17 10:54 | PROGRESS NOTE ---
DATE: 01/17/2019 SUBJECTIVE: Mr. Mc is doing better. The patient seems to be ambulating better. No high- grade fever or chills. No nausea or vomiting. His diarrhea improved. This morning, his blood sugar was 65. The patient does have chronic kidney disease and there is adjustment in his hypoglycemic agent. OBJECTIVE: Vital Signs: Noted. Neck: Supple. No JVD. Lungs: Bibasilar crepitations. Heart: S1 and S2 heard. Abdomen: Soft, nontender. Bowel sounds present. Extremities: No cyanosis, clubbing. No acute DVT. ANALYTICAL SCIENTIST: Alert, awake. Able to move all 4 limbs. Laboratory Data: Done today. Hemoglobin 11, hematocrit 34.3, WBC count 10.33, platelet count 555,000. BUN 32, creatinine 2, GFR 33, blood sugar was 65. CONSIDERATION: 1. Uncontrolled diabetes mellitus. 2. Sepsis. 3. Urinary tract infection. 4. Chronic kidney disease stage 3. PLAN: I am going to hold his metformin, decrease glyburide to 5 mg, continue the rest of the treatment. We will watch patient's blood sugar today. Ambulate the patient in the room and hallway. Watch him for hypoglycemia. Decrease Levaquin to 250 mg IV daily. If clinical condition permits, we will plan discharging patient home tomorrow with adjustment in his hypoglycemic medicines and antibiotics. The patient is in agreement. cc: MD Neil Alicea MD
[2019-01-17] MEDS: TYLENOL PM PO PRN (20:19)
[2019-01-17] MEDS: PRAVACHOL PO SCH (20:21)
--- NOTE | 2019-01-18 05:23 | PROGRESS NOTE ---
DATE: 01/15/2019 Mr. Ibanez had E. coli isolated in one bottle in the blood culture, not in both. He had Klebsiella pneumoniae isolated in the urine. Both are sensitive to Levaquin and we will be discharging him today with Levaquin. He has periods of hypoglycemia, which we are going to control with stopping the oral sulfonylureas. -0 cc: Neil Kenny MD
[2019-01-18] MEDS: PRILOSEC PO SCH (06:14)
[2019-01-18 09:30] VITALS: BP 135/57
--- NOTE | 2019-01-18 09:39 | PROGRESS NOTE ---
DATE: 01/18/2019 Mr. Ibanez is doing better. His abdomen is soft, nontender. He is alert, oriented. We will discharge him today. He is refusing for getting physical therapy. cc: Neil Kenny MD
[2019-01-18] MEDS: KEPPRA PO SCH (09:42)
[2019-01-18] MEDS: FLOMAX PO SCH (09:43)
[2019-01-18] MEDS: GLUCOTROL PO SCH (09:43)
[2019-01-18] MEDS: LOPID PO SCH (09:43)
--- NOTE | 2019-01-18 10:07 | PROGRESS NOTE ---
DATE: 01/18/2019 SUBJECTIVE: The patient is feeling better. His lungs sound clear. We will discharge him today. He is refusing home health help for physical therapy at home. cc: Neil Kenny MD
--- NOTE | 2019-01-19 08:36 | DISCHARGE SUMMARY ---
ADMISSION DATE: 01/11/2019 DISCHARGE DATE: 01/18/2019 ADDENDUM: Mr. Ibanez is doing better now that physical therapy has helped him. He can get up and walk some. He is refusing for physical therapy at home by the home health. We gave him the prescription for Levaquin for acute to UTI. cc: Neil Kenny MD
== END 2019-01-18 11:10 | disposition home or self-care (01) | DRG 872 ==
LOC: SUPCPDRO → EDSEX → ED 09:36 → 1N 15:18
PROVIDERS: ADMIT Internal Medicine; ATTEND Internal Medicine